=== PATIENT | female | born 1955 | race Caucasian/White ===

== ENCOUNTER 2019-10-27 11:25 | Outpatient (CLI) | payer MEDICARE, OTHER, SELFPAY ==
--- NOTE | 2019-10-27 11:41 | CT_ITS ---
WS: [id number] CT ABDOMEN WITH CONTRAST HISTORY: LUQ ABDOMINAL PAIN Contiguous single phase 5 mm axial imaging performed to the abdomen. Oral contrast has been provided. Coronal and sagittal reformats are submitted. All CT scans at [facility] use at least on e of these dose optimization techniques: automated exposure control; mA and/or kV adjustment per shikha ent size (includes targeted exams where dose is matched to clinical indication); or iterative reconst ruction. CONTRAST: Omnipaque 300; 95 mL IV. DLP: 440.11 mGy.cm COMPARISON: None available. Lower thorax: Mild dependent changes at the lung bases. Remote healed rib fracture in the lateral low er RIGHT thorax. Cardiac size is moderately enlarged. Small hiatal hernia. Liver: Mild irregularity along the surface of the liver. There is a filling defect along the anterior portion of the main portal vein. No occlusion. Gallbladder: Prior cholecystectomy. Pancreas: Normal. Spleen: Spleen is moderately enlarged measuring 14.1 cm in length. Adrenals: Normal. Right kidney: Normal. Left kidney: Normal. Aorta: Mild atherosclerosis. No aneurysm. GI tract: Soft tissue circumferential thickening at the cecum and proximal ascending colon. Soft tiss ue thickening is most significant along the medial cecum measuring 10 mm. No GI tract obstruction. Pr ior appendectomy. No adenopathy or free fluid. Abdominal wall: No hernia. Visualized osseous structures: Unremarkable. CT/CT abdomen w con* [id number] IMPRESSION: 1. Circumferential soft tissue thickening at the cecum. Suspicious for neoplas m until proven otherwise. Focal colitis may appear similar. Recommend colonosco py and further evaluation. 2. Partial thrombus in the main portal vein. Portal vein thrombosis can be see n with cirrhosis and abdominal malignancy. 3. Splenomegaly and cirrhosis. 4. Prior cholecystectomy.
[2019-10-27] MEDS: iohexol 300 mg/mL 100 mL Btl PO (11:49)
[2019-10-27 12:45] LABS: Blood Urea Nitrogen 10 mg/dL (8-23); Glomerular Filtration Rate 71.8 mL/min (90-130)
[2019-10-27] MEDS: iohexol 300 mg/mL 100 mL Btl IV (13:03)
== END 2019-10-27 11:26 | disposition home or self-care (01) ==
LOC: RAD 11:30
PROVIDERS: Family Provider Family Medicine; PCP Family Medicine; Visit Provider Family Medicine
DX: R10.12 Left upper quadrant pain (principal); R16.1 Splenomegaly, not elsewhere classified; K74.69 Other cirrhosis of liver; I81 Portal vein thrombosis
CPT/HCPCS: 36415; 74160; 82565; 84520

== ENCOUNTER 2019-11-03 12:33 | Outpatient (CLI) | payer MEDICARE, OTHER, SELFPAY ==
--- NOTE | 2019-11-03 12:42 | CT_ITS ---
WS: [id number] CT CHEST ANGIOGRAPHY WITH REFORMATS HISTORY: DYSPNEA, CHEST PAIN TECHNIQUE: Contiguous axial images are obtained through the chest during arterial injection of intrav enous contrast. Images are reconstructed to evaluate the pulmonary arteries. MIP imaging also reviewe d. All CT scans at [facility] use at least one of these dose optimization techniques: aut omated exposure control; mA and/or kV adjustment per patient size (includes targeted exams where dose is matched to clinical indication); or iterative reconstruction. CONTRAST: Omnipaque 350; 95 mL IV. DLP: 610.03 mGycm COMPARISON: None available. Very good enhancement of the pulmonary arteries. No pulmonary embolism. Normal size pulmonary artery. Mild atherosclerosis aorta. No dissection or aneurysm. Mild scattered calcifications in the [place] c oronary arteries. Heart size is normal. No mediastinal or hilar adenopathy. Mild interstitial thicken ing in the central RIGHT lung and adjacent to an osteophyte in the mid thoracic spine extending towar d the RIGHT. No suspicious mass or pneumonia. Mild circumferential thickening of the distal esophagus. Prior cholecystectomy. Mild irregularity along the surface of the liver. Remote healed rib fracture RIGHT thorax. CT/CT angio chest PE protcl [id number] IMPRESSION: 1. No pulmonary embolism. 2. Mild atherosclerosis aorta. 3. Mild coronary artery calcifications. 4. Prior cholecystectomy.
[2019-11-03] MEDS: iohexol 350 mg/mL 100 mL Btl IV (13:16)
== END 2019-11-03 12:34 | disposition home or self-care (01) ==
LOC: RAD 12:37
PROVIDERS: Family Provider Family Medicine; PCP Family Medicine; Visit Provider Family Medicine
DX: I25.10 Atherosclerotic heart disease of native coronary artery without angina pectoris (principal); I70.0 Atherosclerosis of aorta; R06.02 Shortness of breath; R07.89 Other chest pain; Z90.49 Acquired absence of other specified parts of digestive tract
CPT/HCPCS: 71275; Q9967

== ENCOUNTER 2019-11-11 06:54 | Day surgery (SDC) | payer MEDICARE, OTHER, SELFPAY ==
[2019-11-10 10:32] VITALS: BMI 26.6
--- NOTE | 2019-11-11 07:07 | P.ANESASSM_ITS ---
Pre-Anesthetic Assessment Pre-Anesthetic Assessment: Height/Weight: Height 1.57 m Weight 66.224 kg Preop Diagnosis: Abdominal pain Proposed Procedure: Operation Date: 11/11/19 08:30 Proposed Procedures p Colonoscopy(Not Applicable) - Dagoberto Ortiz MD Familial anesthetic complications: No trouble Was Beta Mack taken within 2 4 hours: Yes Social: Social History: No alcohol and No tobacco Exam: Pre-Anes Outpt Exam: alert, oriented x 3, clear to auscultation bilaterally and regular rate & rhythm Airway: Cervical ROM: WNL MP: 4 Additional comments: missing Pulmonary: Pulmonary: None reported CV/HEM: CV/HEM: HTN : : None reported Hepatic: Comments: portal vein thrombosis GI: GI: GERD Metabolic: Metabolic: DM Musc/skel: Musc/skel: Lower Back Pain Neuropsych: Neuropsych: None reported Anesthetic Plan: ASA status: 3 Anesthesia: MAC Risk of > 500 ml blood loss (7ml/kg in children): No PFSH Anesthesia PFSH: Medical History (Updated 11/05/19 @ 14:58 by Dagoberto Ortiz MD) Diabetes GERD (gastroesophageal reflux disease) Hypertension Surgical History (Updated 11/05/19 @ 14:57 by Dagoberto Ortiz MD) History of appendectomy History of bilateral tubal ligation (~1985) History of cholecystectomy History of esophagogastroduodenoscopy (EGD) History of hysterectomy (~2005) Family History (Updated 11/05/19 @ 10:50 by Sandi Iraheta RN) Denies family history of Anesthesia complication Bleeding disorder Social History (Updated 11/05/19 @ 10:50 by Sandi Iraheta RN) Smoking and tobacco status: never smoked Second hand smoke exposure: No Alcohol intake: never Adopted: No Caregiver/support person: No Lives independently: Yes Household members: spouse Housing: House Marital status: Current occupational status: retired Current occupational exposures/hazards: No Sexually active: No Current gender identity: Female Minal/Congregational: Mormon Data Anesthesia Cardiac Studies: No Data to Display
[2019-11-11 07:59] LABS: Glucose Point of Care 185 mg/dL (70-110)
[2019-11-11 08:03] VITALS: BP 146/88; PULSE 81; RESP 16; TEMP 36.3; O2SAT 96
[2019-11-11] MEDS: sodium chloride 0.9% 1,000 ML 30 ML (08:04)
--- NOTE | 2019-11-11 08:32 | W.PM.OPSUD ---
Surgery/Procedure H&P Update DATE OF PROCEDURE: November 11, 2019 DATE H&P PERFORMED: 11/05/19 H&P UPDATE INFORMATION: I have reviewed H&P completed within last 30 days, I have examined patient prior to procedure and No changes to prior documentation PREOP DIAGNOSIS: Colon polyp/Abnormal CT abdomen and pelvis PRIMARY INDICATION FOR PROCEDURE: The same PLANNED PROCEDURE: Operation Date: 11/11/19 08:30 Proposed Procedures p Colonoscopy(Not Applicable) - Dagoberto Ortiz MD
[2019-11-11 09:41] VITALS: BP 143/68; PULSE 77; RESP 16; TEMP 36.6; O2SAT 99
[2019-11-11 09:48] VITALS: BP 136/70; PULSE 81; RESP 18; O2SAT 98
--- NOTE | 2019-11-11 11:49 | ANE.PACU2 ---
 Inpatient post-anesthesia follow up: Airway intact: Yes Vital signs: Temperature 97.9 F Pulse Rate 81 Respiratory Rate 18 Blood Pressure 136/70 Pulse Oximetry 98 Oxygen Delivery Me thod Room Air Oxygen Flow Rate 3 Fraction of Inspir ed Oxygen Hydration adequate: Yes Nausea and vomiting: No Mental status: Baseline
== END 2019-11-11 10:09 | disposition home or self-care (01) ==
PROVIDERS: Family Provider Family Medicine; PCP Family Medicine; Visit Provider Surgery
PROC: 0DJD8ZZ Inspection of Lower Intestinal Tract, Via Natural or Artificial Opening Endoscopic (ICD-10-PCS; CPT 45378; principal; 2019-11-11 08:30)
DX: Z86.010 Personal history of colon polyps (principal); I10 Essential (primary) hypertension; E11.9 Type 2 diabetes mellitus without complications; K21.9 Gastro-esophageal reflux disease without esophagitis
CPT/HCPCS: 12345; 36416; 45378; 82962; J2704; J7030

== ENCOUNTER 2020-01-11 08:14 | Outpatient (CLI) | payer MEDICARE, OTHER, SELFPAY ==
[2020-01-11] MEDS: iohexol 300 mg/mL 50 mL Btl PO (09:00)
--- NOTE | 2020-01-11 10:00 | CT_ITS ---
WS: [id number] CT ABDOMEN AND PELVIS WITH CONTRAST HISTORY: ABNORMAL CT TECHNIQUE: Imaging performed of the abdomen and pelvis with IV contrast. Single phase imaging of the abdomen. Coronal and sagittal reformats are submitted. All CT scans at [facility] use at least one of these dose optimization techniques: automated exposure control; mA and/or kV adjustment per patient size (includes targeted exams where dose is matched to clinical indication); or iterativ e reconstruction. IV CONTRAST: Omnipaque 300; 95 mL IV. Oral contrast: Yes. DLP: 997.86 mGycm COMPARISON: 10/27/2019 Lower thorax: Lung bases are clear. Heart is normal size. Small hiatal hernia. Liver/biliary system: Surface of the liver is slightly irregular. No mass. Previously described filli ng defect in the portal vein is no longer present. Gallbladder: Prior cholecystectomy. Pancreas: Normal. Spleen: Spleen is top normal size at 13.1 cm in length. Decreased in size since the prior study. Adrenal glands: Normal. Right kidney: Normal. Left kidney: Normal. Aorta: Mild atherosclerosis with no aneurysm. Lymphadenopathy: Very small, subcentimeter lymph nodes around the celiac axis are similar to the prio r study. Free fluid: None. GI tract: Significant improvement in the soft tissue thickening recently described at the cecum. Ther e is still some very mild soft tissue thickening but no progression. No mass identified. There is no obstruction. Appendix has been removed. Abdominal wall: Unremarkable abdominal wall. No hernia. Pelvis: Prior hysterectomy. No free fluid or adenopathy. Well-distended urinary bladder. Bones: No osteoblastic or osteolytic bone lesions. CT/CT abdomen pelvis w con* [id number] IMPRESSION: 1. Significant improvement in the soft tissue thickening at the cecum. Less li parminder neoplastic and more likely inflammatory due to the decrease. 2. Prior cholecystectomy, appendectomy and hysterectomy. 3. Resolved partial portal vein thrombosis. 4. Slight decrease in size of the spleen.
[2020-01-11] MEDS: iohexol 300 mg/mL 100 mL Btl IV (10:28)
[2020-01-11 10:33] LABS: Blood Urea Nitrogen 12 mg/dL (8-23); Glomerular Filtration Rate 83.7 mL/min (90-130)
== END 2020-01-11 08:15 | disposition home or self-care (01) ==
LOC: RADWPI 08:24
PROVIDERS: Family Provider Family Medicine; PCP Family Medicine; Visit Provider Surgery
DX: R22.9 Localized swelling, mass and lump, unspecified (principal)
CPT/HCPCS: 74177; 82565; 84520; Q9967

== ENCOUNTER 2020-01-25 10:36 | Day surgery (SDC) | payer MEDICARE, OTHER, SELFPAY ==
[2020-01-22 12:28] VITALS: BMI 28.3
[2020-01-25 10:39] VITALS: BP 139/71; PULSE 88; RESP 16; TEMP 36; O2SAT 97
[2020-01-25] MEDS: sodium chloride 0.9% 1,000 ML 30 ML IV (10:57)
[2020-01-25 11:03] LABS: Glucose Point of Care 261 mg/dL (70-110)
--- NOTE | 2020-01-25 11:04 | ANES.PREANE2 ---
Pre-Anesthetic Assessment Pre-Anesthetic Assessment: Height/Weight: Height 1.57 m Weight 70.307 kg Temp Pulse Resp BP Pulse Ox 96.8 F L 88 16 139/71 97 01/25/20 10:39 01/25/20 10:39 01/25/20 10:39 01/25/20 10:39 01/25/20 10:39 Preop Diagnosis: Colon polyp/Abnormal CT abdomen and pelvis Proposed Procedure: Operation Date: 01/25/20 12:00 Proposed Procedures p EGD 30075 K21.9(Not Applicable) - Dagoberto Ortiz MD Familial anesthetic complications: none Was Beta Mack taken within 24 hours: Yes Last intake: Intake Last Liquid Date 01/24/20 Last Liquid Time 22:30 Last Solid Date 01/24/20 Last Solid Time 18:30 Social: Social History: No alcohol and No tobacco Exam: Pre-Anes Outpt Exam: alert, oriented x 3, clear to auscultation bilaterally and regular rate & rhythm Airway: Cervical ROM: WNL MP: 2 Additional comments: detnures Pulmonary: Pulmonary: Cough (chronic) CV/HEM: CV/HEM: HTN : : None reported Hepatic: Hepatic: None reported Comments: portal vein thrombosis GI: GI: GERD Metabolic: Metabolic: DM and Morbid obesity Musc/skel: Musc/skel: None reported Neuropsych: Neuropsych: None reported Anesthetic Plan: ASA status: 3 Anesthesia: MAC Risk of > 500 ml blood loss (7ml/kg in children): No Meds/Allergies Current Medications: Current Medications Generic Name Dose Route Start Last Admin Trade Name Freq PRN Reason Stop Dose Admin Sodium Chloride 1,000 mls @ 30 ml s/hr 01/25/20 10:45 01/25/20 10:57 Sodium Chloride 0.9% IV 01/26/20 10:44 30 mls/hr .Q24H TRELL Administration PFSH Anesthesia PFSH: Medical History Diabetes GERD (gastroesophageal reflux disease) Hypertension Surgical History History of appendectomy History of bilateral tubal ligation (~1985) History of cholecystectomy History of esophagogastroduodenoscopy (EGD) History of hysterectomy (~2005) Family History Denies family history of Anesthesia complication Bleeding disorder Social History Smoking and tobacco status: never smoked Second hand smoke exposure: No Alcohol intake: never Adopted: No Caregiver/support person: No Lives independently: Yes Household members: spouse Housing: House Marital status: Current occupational status: retired Current occupational exposures/hazards: No Sexually active: No Current gender identity: Female Minal/Orthodox: Restorationist Data Anesthesia Other Labs: Laboratory Results - last 48 hr 01/25/20 10:54 POC Glucose 261 Cardiac Studies: No Data to Display
--- NOTE | 2020-01-25 12:06 | W.PM.OPSFHP ---
Same Day Surgery H&P Indication for Procedure/HPI DATE OF PROCEDURE: January 25, 2020 CHIEF COMPLAINT/INDICATIONFOR SURGICAL PROCEDURE: Heartburn PREOP DIAGNOSIS: Colon polyp/Abnormal CT abdomen and pelvis PLANNED PROCEDRUE: Operation Date: 01/25/20 12:00 Proposed Procedures p EGD 91782 K21.9(Not Applicable) - Dagoberto Ortiz MD History of present illness: This is a pleasant 64 years old female patient well-known to me from previous clinical encounters and she has been having persistent GERD symptoms and dyspepsia, today we will plan to perform a diagnostic EGD and patient agreed on that. A previous CT scan showed thickness of the cecum in the presence of abdominal pain that was followed by colonoscopy and the designated spot did not show much except normal endoscopic findings, followed by repeat CT scan per my discussion with Dr. Partida and that showed resolution of the thickness of the part of the cecum likely inflammatory. ROS All systems have been reviewed negative except for the above and per problem list. Medications/Allergies* Home Medications Medication Instructions Recorded Confirmed Type amlodipine 10 mg tablet 10 mg PO DAILY 11/05/19 01/22/20 History aripiprazole 15 mg tablet 15 mg PO DAILY 11/05/19 01/22/20 History aspirin 81 mg tablet,delayed 81 mg PO DAILY 11/05/19 01/22/20 History release carvedilol 12.5 mg tablet 12.5 mg PO BID 11/05/19 01/22/20 History esomeprazole magnesium 20 mg 20 mg PO DAILY 11/05/19 01/22/20 History capsule,delayed release glimepiride 2 mg tablet 3 mg PO BID tab 11/05/19 01/22/20 History hydrochlorothiazide 25 mg tablet 25 mg PO DAILY 11/05/19 01/22/20 History Allergies/Adverse Reactions Allergy/AdvReac Type Severity Reaction Status Date / Time pantoprazole [From Protonix] Allergy Severe ALGY-Hives Verified 01/25/20 12:08 Current Medications: Generic Name Dose Route Start Last Admin Trade Name Freq PRN Reason Stop Dose Admin Sodium Chloride 1,000 mls @ 30 mls/hr 01/25/20 10:45 01/25/20 10:57 Sodium Chloride 0.9% IV 01/26/20 10:44 30 mls/hr .Q24H TRELL Administration Pertinent History/Comorbid Conditions* Medical History (Updated 11/11/19 @ 09:44 by Dagoberto Ortiz MD) Diabetes GERD (gastroesophageal reflux disease) Hypertension Surgical History (Updated 11/05/19 @ 14:57 by Dagoberto Ortiz MD) History of appendectomy History of bilateral tubal ligation (~1985) History of cholecystectomy History of esophagogastroduodenoscopy (EGD) History of hysterectomy (~2005) Family History (Updated 11/05/19 @ 10:50 by Sandi Iraheta RN) Denies family history of Anesthesia complication Bleeding disorder Social History Smoking and tobacco status: never smoked Second hand smoke exposure: No Alcohol intake: never Adopted: No Caregiver/support person: No Lives independently: Yes Household members: spouse Housing: House Marital status: Current occupational status: retired Current occupational exposures/hazards: No Sexually active: No Current gender identity: Female Minal/Jewish: Restorationism Pertinent Exam Findings alert, oriented x 3, clear to auscultation bilaterally, regular rate & rhythm and operative site marked (Abdominal examination nontender non-distended soft no signs of peritonitis) Recommendations Surgery/Procedure today (Diagnostic EGD with possible biopsy) Coding Level of Care Code Acute Service Delivery Consultant for Shahram Woodson
[2020-01-25 12:56] VITALS: BP 128/58; PULSE 78; RESP 16; TEMP 36.2; O2SAT 98
[2020-01-25 13:06] VITALS: BP 147/70; PULSE 84; RESP 16; O2SAT 96
[2020-01-26 10:07] LABS: H. Pylori / CLO Test Negative
== END 2020-01-25 13:20 | disposition home or self-care (01) ==
PROVIDERS: PCP Family Medicine; Visit Provider Surgery
PROC: 0DJ08ZZ Inspection of Upper Intestinal Tract, Via Natural or Artificial Opening Endoscopic (ICD-10-PCS; CPT 43235; principal; 2020-01-25 12:00)
DX: K21.9 Gastro-esophageal reflux disease without esophagitis (principal); K29.70 Gastritis, unspecified, without bleeding; Z79.82 Long term (current) use of aspirin; E11.9 Type 2 diabetes mellitus without complications; I10 Essential (primary) hypertension
CPT/HCPCS: 12345; 36416; 43239; 82962; 87077; J2704; J7030

== ENCOUNTER → 2020-06-27 10:43 | Outpatient (BNVA) | payer MEDICARE, OTHER, SELFPAY | PROVIDERS: PCP Family Medicine; Referring Provider Family Medicine; Visit Provider Podiatrist Foot & Ankle Surgery | DX: M19.072 Primary osteoarthritis, left ankle and foot (principal); M79.672 Pain in left foot | CPT/HCPCS: 73630 ==

== ENCOUNTER 2020-06-29 13:30 | Outpatient (RCR) | payer MEDICARE, OTHER, SELFPAY | END 2020-07-09 23:59 | disposition home or self-care (01) | LOC: SPT 13:30 | PROVIDERS: PCP Family Medicine; Referring Provider Podiatrist Foot & Ankle Surgery; Visit Provider Podiatrist Foot & Ankle Surgery | DX: R29.6 Repeated falls (principal) | CPT/HCPCS: 97110; 97161; 97530 ==

== ENCOUNTER 2020-07-10 06:00 | Outpatient (RCR) | payer MEDICARE, OTHER, SELFPAY | END 2020-08-08 23:59 | disposition home or self-care (01) | LOC: SPT 06:00 | PROVIDERS: PCP Family Medicine; Referring Provider Podiatrist Foot & Ankle Surgery; Visit Provider Podiatrist Foot & Ankle Surgery | DX: R29.6 Repeated falls (principal) | CPT/HCPCS: 97110 ==

== ENCOUNTER 2020-08-09 06:00 | Outpatient (RCR) | payer MEDICARE, OTHER, SELFPAY | END 2020-08-11 16:36 | disposition home or self-care (01) | LOC: SPT 06:00 | PROVIDERS: PCP Family Medicine; Referring Provider Podiatrist Foot & Ankle Surgery; Visit Provider Podiatrist Foot & Ankle Surgery | DX: R29.6 Repeated falls (principal) | CPT/HCPCS: 97110 ==

== ENCOUNTER 2020-08-16 08:14 | Outpatient (CLI) | payer MEDICARE, OTHER, SELFPAY ==
--- NOTE | 2020-08-16 08:21 | MM_ITS ---
WS: [id number] BILATERAL DIGITAL SCREENING MAMMOGRAPHY WITH CAD CLINICAL INFORMATION: SCREENING HISTORY: Screening mammogram. Breast tenderness COMPARISON: 019 TECHNIQUE: Bilateral CC and MLO views. FINDINGS: The breasts are composed of heterogeneous fibroglandular density tissue, which can limit the detectio n of small underlying mass lesions. No suspicious mass, asymmetry, calcifications, or architectural d istortion. No evidence of malignancy. Vascular calcification. Stable punctate calcifications. Stable clustered calcifications upper posterior right breast. MM/[place] [id number] IMPRESSION: BI-RADS: 2-Benign FOLLOW UP: 1 Year Follow-up Recommend return to annual screening mammography.
== END 2020-08-16 08:15 | disposition home or self-care (01) ==
LOC: RADSHAW 08:17
PROVIDERS: PCP Family Medicine; Visit Provider Family Medicine
DX: Z12.31 Encounter for screening mammogram for malignant neoplasm of breast (principal)
CPT/HCPCS: 77067

== ENCOUNTER → 2020-11-22 11:27 | Outpatient (BNVA) | payer MEDICARE, OTHER, SELFPAY | PROVIDERS: PCP Family Medicine; Visit Provider Obstetrics & Gynecology | DX: N90.89 Other specified noninflammatory disorders of vulva and perineum (principal) | CPT/HCPCS: 88305 ==

== ENCOUNTER 2021-02-23 10:00 | Outpatient (CLI) | payer MEDICARE, OTHER, SELFPAY ==
[2021-02-23 11:51] VITALS: BMI 30.2
--- NOTE | 2021-02-23 11:52 | ECG_ITS ---
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 Interpretive Statements NAME OF STUDY: LEXISCAN SESTAMIBI STRESS TEST INDICATION: Dyspnea PROCEDURE: At the baseline, the blood pressure was 148/72 mmHg with a heart rate of 82 bpm. The electrocardiogram showed normal sinus rhythm, normal axis with nonspecific ST depression in leads II, III and aVF. The Lexiscan was infused over a period of 20 seconds. A total of 0.4 milligrams of Lexiscan was infused. The stress phase was continued for a total of 5 minutes. Heart rate at the end of the stress phase was 92 bpm with a blood pressure of 155/65 mmHg. The EKG at the peak infusion revealed sinus rhythm with no significant ST-T wave changes. The study was terminated due to protocol completion. Sestamibi was injected 20 seconds after the Lexiscan infusion. Blood pressure at the end of the recovery phase was 156/69 mmHg with a heart rate of 91 beats per minute. CONCLUSION: 1. No significant EKG changes with the LexiScan infusion. 2. No LexiScan induced chest pain or cardiac arrhythmia. 3. Normal blood pressure and heart rate response. 4. Sestamibi/sestamibi perfusion scan pending; see separate report. Electronically Signed On 02-27-2021 11:11:01 CDT by Ale Quick M.D. [email or web address] [id number]
--- NOTE | 2021-02-23 11:53 | NMCV_ITS ---
NM alfredo perf SPECT r/s* [id number] Kristin Rosario Age: 66 Gender: F : 1955 Exam Date: 02/23/2021 12:10 Ordering Phys: Sunny Tian MD Technologist: CECILIA Luna Exam Location: [facility] Indications: DYSPNEA STRESS TEST Please [facility] IMAGE PROTOCOL Rest/Stress 1 Lexiscan Day Radiopharmaceutical Dose (mCi) Administration Site Administered by Rest: Tc-99m 10.5 IV CECILIA Luna Sestamibi Stress:Tc-99m 32.4 IV CECILIA Jaramillo Sestamibi Rest: 23-Feb-2021 60 Discovery 630 Stress: 23-Feb-2021 30 Discovery 630 0.4mg Lexiscan. Images obtained in supine and prone position. SPECT RESULTS Technical Quality: Excellent Raw Data Analysis: Normal Image Corrections: No attenuation or motion correction applied Summed Stress Score: 0 Summed Rest Score: 0 Summed Difference Score: 0 PERFUSION FINDINGS SPECT images demonstrate homogeneous tracer distribution throughout the myocardium. FUNCTIONAL RESULTS (calculated via Gated SPECT) Stress Image LV EF (%): 79 Stress EDV (mL):72 TID: 0.92 Stress ESV (mL):15 FUNCTIONAL FINDINGS: The left ventricle is normal in size. Transient Ischemia Dilatation of 0.92. There is normal left ventricular systolic function. The left ventricular ejection fraction is normal with a value of 79%. There is normal left ventricular wall thickening with no regional wall motion abnormality. Normal end-diastolic end-systolic volumes. IMPRESSIONS 1. Myocardial perfusion imaging is normal. 2. Overall left ventricular systolic function is normal without regional wall motion abnormalities. 3. The left ventricular ejection fraction is normal with a value of 79%. 4. No significant EKG changes with Lexiscan infusion. Please refer to separate report for details. 5. Scan indicates low risk for cardiac events. Ale Quick MD (Electronically Signed) Final Date: 27 February 2021 11:18 S
[2021-02-23 13:26] VITALS: BP 156/69; PULSE 91
[2021-02-23] MEDS: regadenoson 0.4 Mg/5 ml Syringe IVP (13:29)
== END 2021-02-23 10:01 | disposition home or self-care (01) ==
LOC: CDL 10:03
PROVIDERS: PCP Family Medicine; Visit Provider Family Medicine
DX: R06.00 Dyspnea, unspecified (principal); R07.9 Chest pain, unspecified
CPT/HCPCS: 78452; 93017; A9500; J2785

== ENCOUNTER 2021-02-28 08:54 | Outpatient (CLI) | payer MEDICARE, OTHER, SELFPAY ==
--- NOTE | 2021-02-28 09:04 | US_ITS ---
WS: [id number] Complete ABDOMINAL ULTRASOUND HISTORY: LUQ RUQ ABDOMINAL PAIN COMPARISON: 02/27/2019 Liver: 13.8 cm in length. Liver is normal size but there is mild increased attenuation and coarsened echotexture suggesting early cirrhosis. No mass or bile duct dilatation. Gallbladder: Prior cholecystectomy. Pancreas: Normal size and echogenicity. CBD: 0.4 cm. Right kidney: 9.7 cm x 5.9 cm x 4.6 cm. No mass, cortical thickening or hydronephrosis. Left kidney: 11.4 cm x 4.8 cm x 5.2 cm. No mass, cortical thickening or hydronephrosis. Spleen: Spleen is slightly enlarged measuring 14.7 cm in length. Abdominal aorta and IVC are within normal limits. No ascites. US/US abdomen complete* [id number] IMPRESSION: 1. Mild splenomegaly. 2. Prior cholecystectomy. 3. Suspect mild changes of hepatocellular disease such as cirrhosis.
== END 2021-02-28 08:55 | disposition home or self-care (01) ==
LOC: RAD 08:57
PROVIDERS: PCP Family Medicine; Visit Provider Family Medicine
DX: R10.12 Left upper quadrant pain (principal); R10.11 Right upper quadrant pain; R16.1 Splenomegaly, not elsewhere classified; Z90.49 Acquired absence of other specified parts of digestive tract
CPT/HCPCS: 76700

== ENCOUNTER 2021-03-20 08:19 | Outpatient (CLI) | payer MEDICARE, OTHER, SELFPAY ==
--- NOTE | 2021-03-20 08:28 | USCV_ITS ---
Kristin Rosario Age: 66 Gender: F : 1955 Exam Date: 03/20/2021 08:47 Ordering Phys: Technologist: Sarai Corral Exam Location: [facility] [place] Indication: SOB LOW O2 CHEST PAIN BP: 165 / 87 HR: 67 Rhythm: Sinus Technical Quality: Adequate MEASUREMENTS (Male / Female) Normal Values 2D ECHO LV Diastolic Diameter PLAX 3.8 cm 4.2 - 5.9 / 3.9 - 5.3 cm LV Systolic Diameter PLAX 2.4 cm LV Chamber Size 3.7 cm IVS Diastolic Thickness 1.4 cm 0.6 - 1.0 / 0.6 - 0.9 cm IVS Systolic Thickness 1.8 cm LVPW Diastolic Thickness 1.6 cm 0.6 - 1.0 / 0.6 - 0.9 cm LVPW Systolic Thickness 1.6 cm RV Chamber Size 3.2 cm LVOT Diameter 2.0 cm LV Ejection Fraction 2D Teich 65.3 % LV Ejection Fraction MOD 2C 36.7 % LV Ejection Fraction 2C AL 33.3 % LA Diameter 3.8 cm LA Width 3.3 cm LA Height 4.4 cm RA Width 3.7 cm RA Height 2.7 cm Aorta at Sinotubular Diameter 3.0 cm M-MODE LV Diastolic Diameter MM 4.3 cm 4.2 - 5.9 / 3.9 - 5.3 cm LV Systolic Diameter MM 2.8 cm LV Ejection Fraction MM Teich 63.5 % IVS Diastolic Thickness MM 1.1 cm 0.6 - 1.0 / 0.6 - 0.9 cm IVS Systolic Thickness MM 1.8 cm LVPW Diastolic Thickness MM 1.4 cm 0.6 - 1.0 / 0.6 - 0.9 cm LVPW Systolic Thickness MM 1.8 cm RV Diastolic Diameter MM 2.9 cm Aortic Annulus Diameter 3.1 cm LA Ao Ratio MM 1.5 MV E Point Septal Separation 0.6 cm DOPPLER AV Peak Velocity 131.0 cm/s LVOT Peak Velocity 70.0 cm/s AV Area Cont Eq vti 2.2 cm squared AV Area Cont Eq pk 1.8 cm squared MV Area PHT 2.9 cm squared Mitral E to A Ratio 0.8 MV E' Velocity 39.5 cm/s Mitral E to MV E' Ratio 11.3 Mitral E to LV E' Lateral Ratio 11.6 Mitral E to LV E' Septal Ratio 10.9 TR Peak Velocity 211.0 cm/s TR Peak Gradient 17.8 mmHg TR Mean Velocity 134.1 cm/s TR Mean Gradient 9.5 mmHg TR Velocity Time Integral 51.9 cm TV Peak E Velocity 74.0 cm/s Right Atrial Pressure 3.0 mmHg Pulmonary Artery Systolic Pressu 20.8 mmHg PV Peak Velocity 85.0 cm/s RV Acceleration Time 0.2 s RV Ejection Time 0.4 s RV AcT/ET 0.4 FINDINGS Left Ventricle Normal left ventricular size and systolic function, EF 60 %. No regional wall motion abnormalities. Mild left ventricular hypertrophy. Grade I/IV diastolic dysfunction (abnormal relaxation filling pattern), normal to mildly elevated filling pressures. Right Ventricle Normal right ventricular systolic function. Thickening of the right on his left free wall, suggestive of hypertrophy Right Atrium The right atrium is normal in size. Left Atrium Mildly increased left atrial size. Mitral Valve Trace to mild mitral valve regurgitation. Aortic Valve Structurally normal aortic valve without significant sclerosis or stenosis. There is no aortic regurgitation. Tricuspid Valve Trace tricuspid valve regurgitation. Pulmonic Valve Structurally normal pulmonic valve without significant stenosis. There is no pulmonic regurgitation. Pericardium Normal pericardium without effusion. Aorta Mild to moderate plaque seen in the ascending aorta. CONCLUSIONS Normal left ventricular size and systolic function, EF 60 %. No regional wall motion abnormalities. Mild left ventricular hypertrophy. Grade I/IV diastolic dysfunction (abnormal relaxation filling pattern), normal to mildly elevated filling pressures. Mildly increased left atrial size. Trace to mild mitral valve regurgitation. Trace tricuspid valve regurgitation. The estimated pulmonary artery peak systolic pressure was 21 mmHg There is no pericardial effusion. Compared to the study from 04/08/2017, there may not be a significant change Technically somewhat difficult study because of poor ultrasonic window Dr Padma Hinson MD [facility] (Electronically Signed) Final Date: 20 March 2021 16:31 S
== END 2021-03-20 08:20 | disposition home or self-care (01) ==
LOC: US 08:20
PROVIDERS: PCP Family Medicine; Visit Provider Family Medicine
DX: R06.00 Dyspnea, unspecified (principal); R07.89 Other chest pain; R06.02 Shortness of breath; I08.1 Rheumatic disorders of both mitral and tricuspid valves
CPT/HCPCS: 93306

== ENCOUNTER 2021-04-13 12:25 | Emergency (ER) | payer MEDICARE, OTHER, SELFPAY ==
[2021-04-13 12:47] VITALS: BP 133/78; PULSE 81; RESP 19; TEMP 37; O2SAT 93; BMI 29.9
[2021-04-13 12:52] VITALS: BP 124/78; RESP 18; O2SAT 99
--- NOTE | 2021-04-13 16:16 | XRR_ITS ---
PROCEDURE INFORMATION: Exam: XR Lumbosacral Spine Exam date and time: 04/13/2021 4:16 PM Age: 66 years old Clinical indication: Low back pain; Prior surgery TECHNIQUE: Imaging protocol: XR of the lumbosacral spine. Views: 2 or 3 views. COMPARISON: MRI Lumbar Spine w/o [id number] 07/07/2019 11:27 AM FINDINGS: Bones/joints: There is decreased height of the L2-L3 disc space. There are prominent anterolateral osteophytes at L2-L3 and also some spurring along the left side at L3-L4 and L4-L5. Intervertebral disc spaces are otherwise preserved. No fracture is identified. There are 6 non rib-bearing lumbar type vertebrae. Soft tissues: Unremarkable. Other findings: Bones are moderately osteopenic. XR/XR lumbar spine 2-3V* [id number] IMPRESSION: 1. No fracture is identified. 2. Degenerative changes.
--- NOTE | 2021-04-13 16:16 | XRR_ITS ---
PROCEDURE INFORMATION: Exam: XR Thoracic Spine Exam date and time: 04/13/2021 4:16 PM Age: 66 years old Clinical indication: Pain in thoracic spine; Prior surgery TECHNIQUE: Imaging protocol: XR of the thoracic spine. Views: 3 views. COMPARISON: CT abdomen pelvis w con* [id number] 01/11/2020 10:25 AM FINDINGS: Bones/joints: There are degenerative changes with some bridging osteophytes along the right side of the lower thoracic spine. No fracture is identified. Bones are moderately osteopenic. Soft tissues: Unremarkable. Paraspinous stripe is intact XR/XR thoracic spine 3V* [id number] IMPRESSION: 1. Degenerative changes. 2. No fracture is identified.
--- NOTE | 2021-04-13 16:17 | XRR_ITS ---
PROCEDURE INFORMATION: Exam: XR Chest Exam date and time: 04/13/2021 4:17 PM Age: 66 years old Clinical indication: Cough; Additional info: Dyspnea/cough TECHNIQUE: Imaging protocol: XR of the chest. Views: 1 view. COMPARISON: CR Chest 1 [place] [id number] 05/17/2019 7:51 PM FINDINGS: Lungs: Visualized portions of the lungs are clear. Pleural spaces: Unremarkable. No pleural effusion. No pneumothorax. Heart/Mediastinum: Heart is within normal limits of size. Vasculature: Atherosclerotic calcification is seen in the aortic arch. Bones/joints: There are degenerative changes in the thoracic spine. XR/XR chest 1V portable [id number] IMPRESSION: No acute infiltrates.
--- NOTE | 2021-04-13 16:18 | PC.PHAR ---
pt states she takes care of her own medications-pt states the dr huntd her pioglitazone about 2 weeks ago-pt states she takes a allergy relief pill once a day and states she thinks its the benadryl -
--- NOTE | 2021-04-13 16:19 | ED_ITS ---
HPI - Female Genitourinary General: Chief complaint: Urogenital-Female Stated complaint: r side flank pain Time Seen by Provider: 04/13/21 15:28 History of Present Illness: HPI Narrative: 66-year-old female comes in complaining of pain in the right flank is been worse over the last week is been going on for little over a month. Is worse when she moves in particular ways he will get a spasm-like effect it was reexacerbated when we had her sit up to listen to her breath sounds. Supposedly later back down when she twists it also spasms. She cannot remember the precipitating event. She is not had any hematuria no dysuria urgency or frequency no cough or shortness of breath no fevers. MD elicited complaint: flank pain Onset (ago): week(s) Location of symptoms: flank (Right mid back) Severity: moderate Female Urogenital Radiation: R Flank Quality of pain: sharp and stabbing Consistency: intermittent Vaginal bleeding: none Exacerbating factors: movement Relieving factors: none Associated symptoms: Deny abdominal pain, short of breath, fevers/chills, headache(s), nausea, rash, seizures, syncope or weakness Treatment prior to arrival: none Review of Systems Const: Denies: fever(s), chills, body aches, change in appetite, fatigue or malaise ENMT: Denies: throat pain, ear or mastoid pain, nasal discharge or nasal congestion Card: Denies: syncope Resp: Denies: dyspnea, productive cough or non-productive cough GI: Denies: abdominal pain or nausea : Denies: flank pain, difficulty voiding, dysuria, urinary frequency or urinary urgency Skin/Breast: Denies: rash or pruritus Neuro: Denies: headache(s) PFSH ED PFSH: Medical History (Updated 04/13/21 @ 17:57 by Angel Del Castillo DO) Diabetes GERD (gastroesophageal reflux disease) Hypertension Surgical History History of appendectomy History of bilateral tubal ligation (~1985) History of cholecystectomy History of esophagogastroduodenoscopy (EGD) History of hysterectomy (~2005) Family History Denies family history of Anesthesia complication Bleeding disorder Social History Smoking and tobacco status: never smoked Second hand smoke exposure: No Alcohol intake: never Adopted: No Caregiver/support person: No Lives independently: Yes Household members: spouse Housing: House Marital status: Current occupational status: retired Current occupational exposures/hazards: No Sexually active: No Current gender identity: Female Minal/Uatsdin: [employer] Physical Exam Const: COMMON NORMALS: no acute distress GENERAL APPEARANCE: cooperative and comfortable ORIENTATION/CONSCIOUSNESS: Yes awake, Yes oriented to person, Yes oriented to place and Yes oriented to time HENMT: COMMON NORMALS: normocephalic, atraumatic and hearing grossly normal bilaterally HEAD & SCALP: normocephalic and atraumatic Neck/C-Spine: COMMON NORMALS: no JVD Resp: COMMON NORMALS: normal respiratory effort, No retractions, No use of accessory muscles and clear to auscultation bilaterally AUSCULTATION: clear to auscultation bilaterally Cardio: COMMON NORMALS: no JVD, regular rate, regular rhythm and No murmurs present (Cardio) RATE: regular rate RHYTHM: regular rhythm GI: COMMON NORMALS: Soft to palpation and No hepatosplenomegaly present AUSCULTATION: Yes normoactive bowel sounds PALPATION: Yes Soft to palpation, No Tenderness to palpation present (GI), No Guarding due to palpation present (GI) and Yes No hepatosplenomegaly present Extremity: COMMON NORMALS: normal to inspection, capillary refill normal, no clubbing, cyanosis or edema, no calf tenderness and no pedal edema Neuro: SENSORIUM/ORIENTATION: Yes oriented to person, Yes oriented to place and Yes oriented to time Skin: COMMON NORMALS: no rashes or lesions noted GENERAL SKIN EXAM: no rashes or lesions noted Course Vital Signs: Vital signs: Vital Signs Temperature 98.6 F 04/13/21 12:47 Pulse Rate 81 04/13/21 12:47 Respiratory Rate 18 04/13/21 18:08 Blood Pressure 124/78 04/13/21 18:08 Pulse Oximetry 99 04/13/21 18:08 MDM - Female MDM Narrative: Medical decision making narrative: Reviewed labs and imaging. Patient will be discharged home. No acute fractures this time return if has further problems otherwise follow-up with primary care doctor medications given as below Lab Data: Labs: Lab Results 04/13/21 Range/Units 17:00 Urine Color Yellow (Yellow) Urine Appearance Clear (CLEAR) Urine pH 5 (5-7) Ur Specific Gravit y 1.015 (1.005-1.030) Urine Protein 1+ H (Negative) Urine Glucose (UA) 2+ (Normal) Urine Ketones Negative (Negative) Urine Blood Neg (Negative) Urine Nitrate Negative (Negative) Urine Bilirubin Neg (Negative) Urine Urobilinogen Neg (Negative) mg/dL Ur Leukocyte Alana ase Negative (Negative) Discharge Plan Discharge Patient Disposition: Home Clinical Impression: Back pain without radiation Condition: Stable Prescriptions: New hydrocodone-acetaminophen 5-325 mg tablet 1 tab PO Q6H PRN (Reason: pain) Qty: 10 RF: 0 diclofenac sodium 75 mg tablet,delayed release (DR/EC) 75 mg PO Q12H PRN (Reason: pain) Qty: 20 RF: 0 Medrol (Carter) 4 mg tablets,dose pack See Rx Instructions .ROUTE .COMPLEX Qty: 21 RF: 0 No Action hydrochlorothiazide 25 mg tablet 25 mg PO QAM RF: 0 amlodipine 10 mg tablet 10 mg PO QAM RF: 0 aripiprazole 15 mg tablet 15 mg PO BEDTIME RF: 0 esomeprazole magnesium [Nexium] 20 mg capsule,delayed release(DR/EC) 40 mg PO QAM RF: 0 carvedilol 12.5 mg tablet 12.5 mg PO BID RF: 0 aspirin 81 mg tablet,delayed release (DR/EC) 81 mg PO QAM RF: 0 Hold Instructions: Resume on 01/28/20. cyclobenzaprine 10 mg tablet 10 mg PO TID PRN (Reason: muscle spasm) Qty: 30 RF: 0 (DME) DIABETIC SHOES See Rx Instructions .ROUTE .MEDSUPPLY Qty: 1 RF: 0 Tylenol Extra Strength 500 mg Tablet 1,000 mg PO PRN RF: 0 Allergy Relief(diphenhydramin) 25 mg Tablet 25 mg PO QAM RF: 0 glimepiride 4 mg tablet 4 mg PO BID RF: 0 Discharge Orders: Discharge ED (Routine); Ordered 04/13/21 Ordered By: Angel Del Castillo Referrals: Sunny Tian MD [Primary Care Provider] - Patient Instructions: Opioid Safety Coding Level of Care Code ED Fryline Attendant for Chg Fwd Exam Comprehensive
[2021-04-13 17:15] LABS: Add Urine Microscopic? NO; Charge for UA Resulting for Rev
[2021-04-13 17:35] LABS: Bilirubin Urine Neg (Negative); Blood Urine Neg (Negative); Glucose Urine UA 2+ (Normal); Ketones Urine Negative (Negative); Leukocyte Esterase Urine Negative (Negative); Nitrate Urine Negative (Negative); Protein Urine 1+ (Negative); Specific Gravity, Urine 1.015 (1.005-1.030); Urine Appearance Clear (CLEAR); Urine Color Yellow (Yellow); Urobilinogen Urine Neg (Negative); pH Urine 5 (5-7)
[2021-04-13 18:08] VITALS: BP 124/78; RESP 18; O2SAT 99
== END 2021-04-13 18:08 | disposition home or self-care (01) ==
PROVIDERS: Emergency Provider Family Medicine; PCP Family Medicine
DX: M54.9 Dorsalgia, unspecified (principal); Z79.82 Long term (current) use of aspirin; E11.9 Type 2 diabetes mellitus without complications; I10 Essential (primary) hypertension; Z79.84 Long term (current) use of oral hypoglycemic drugs
CPT/HCPCS: 71045; 72072; 72100; 81003; 99283

== ENCOUNTER 2021-08-28 10:03 | Outpatient (CLI) | payer MEDICARE, OTHER, SELFPAY ==
--- NOTE | 2021-08-28 10:15 | XR_ITS ---
WS: [id number] Exam: XR chest 2V* [id number] Date/Time of Exam: 08/28/2021 10:15 AM Reason For Exam: ACUTE BRONCHITIS Comparison 04/13/2021. Findings: The lungs are clear and fully expanded. Costophrenic angles are sharp. No infiltrates. Bronchovascula r relief appears normal. Cardiac silhouette is unremarkable. Bony elements are intact. XR/XR chest 2V* [id number] IMPRESSION: Unremarkable chest radiograph.
== END 2021-08-28 10:04 | disposition home or self-care (01) ==
PROVIDERS: PCP Family Medicine; Visit Provider Clinical Nurse Specialist Adult Health
DX: J20.9 Acute bronchitis, unspecified (principal)
CPT/HCPCS: 71046

== ENCOUNTER 2021-10-16 09:32 | Outpatient (CLI) | payer MEDICARE, OTHER, SELFPAY ==
--- NOTE | 2021-10-16 09:41 | MM_ITS ---
WS: [id number] SCREENING DIGITAL MAMMOGRAM WITH CAD HISTORY: SCREENING COMPARISON: 08/16/2020, 05/13/2019 and 03/05/2018 Bilateral CC and MLO views submitted. Computer aided detection analyzed. Breast composition: There are scattered areas of fibroglandular density. Cluster of ill-defined calci fications noted on the RIGHT MLO projection posteriorly just above the nipple line. There is an addit ional cluster of calcification central to the nipple on the CC projection at a middle depth. These ca lcifications may not correspond to the calcifications noted on the MLO projection. Vascular calcifications bilaterally. LEFT breast is negative for suspicious calcifications. MM/[place] [id number] IMPRESSION: BI-RADS: 0-Incomplete: Need additional imaging evaluation FOLLOW UP: Need Additional Imaging RIGHT BREAST: Magnification views of suspicious calcification CC and MLO. True ML. Recommend additional exaggerated RIGHT CC and order to attempt localization of the calcifications in the posterior RIGHT breast which may not be present o n the CC projection.
== END 2021-10-16 09:33 | disposition home or self-care (01) ==
PROVIDERS: PCP Family Medicine; Visit Provider Family Medicine
DX: Z12.31 Encounter for screening mammogram for malignant neoplasm of breast (principal)
CPT/HCPCS: 77067

== ENCOUNTER 2021-11-20 11:02 | Outpatient (CLI) | payer MEDICARE, OTHER, SELFPAY ==
--- NOTE | 2021-11-20 11:13 | MM_ITS ---
WS: [id number] Right breast diagnostic 3D tomosynthesis digital mammogram, 11/20/2021 Clinical Data: ABNORMAL MAMMOGRAM RT BREAST Comparison: 10/16/2021, 08/16/2020, 05/13/2019, 03/05/2018, 11/23/2016, 11/12/2016, 12/12/2011, 09/22/2007. Findings: Right CC, right MLO and right ML views were obtained. There are vascular calcifications. No spiculate d masses or clustered calcifications are seen in the central right breast.. MM/[place] [id number] Impression: Negative right breast mammogram BIRADS: 1-Negative FOLLOW UP: 1 Year Follow-up The CAD credit checker was used.
== END 2021-11-20 11:03 | disposition home or self-care (01) ==
LOC: RADSHAW 11:06
PROVIDERS: PCP Family Medicine; Visit Provider Family Medicine
DX: R92.8 Other abnormal and inconclusive findings on diagnostic imaging of breast (principal)
CPT/HCPCS: 77061

== ENCOUNTER 2021-11-30 12:54 | Outpatient (CLI) | payer MEDICARE, OTHER, SELFPAY ==
--- NOTE | 2021-11-30 13:40 | XR_ITS ---
WS: [id number] Right rib detail, 3 views, 11/30/2021 Clinical Data: RIGHT SIDED RIB PAIN Comparison: None. Findings: There is a healed fracture of the lateral aspect of the right sixth rib. The remainder of the ribs is normal. No acute fractures are seen. There is no right pneumothorax or subcutaneous emphysema. There are clips in the right upper quadrant from a cholecystectomy. There is a minimal dextroscoliosis wit h osteoarthritis of the thoracic vertebral bodies. XR/XR ribs RT 2V* [id number] Impression: 1. Negative for acute right rib fracture. 2. Old lateral right sixth rib fracture.
== END 2021-11-30 12:55 | disposition home or self-care (01) ==
LOC: RAD 12:56
PROVIDERS: PCP Family Medicine; Visit Provider Family Medicine
DX: R07.81 Pleurodynia (principal)
CPT/HCPCS: 71100

== ENCOUNTER 2021-12-12 06:00 | Outpatient (RCR) | payer MEDICARE, OTHER, SELFPAY | END 2022-01-06 23:59 | disposition home or self-care (01) | LOC: SPT 06:00 | PROVIDERS: PCP Family Medicine; Referring Provider Family Medicine; Visit Provider Family Medicine | DX: M54.9 Dorsalgia, unspecified (principal); R07.81 Pleurodynia | CPT/HCPCS: 97110; 97161 ==

== ENCOUNTER 2022-01-07 06:00 | Outpatient (RCR) | payer MEDICARE, OTHER, SELFPAY | END 2022-01-23 23:00 | disposition home or self-care (01) | LOC: SPT 06:00 | PROVIDERS: PCP Family Medicine; Referring Provider Family Medicine; Visit Provider Family Medicine | DX: R07.81 Pleurodynia (principal) | CPT/HCPCS: 97110 ==

== ENCOUNTER → 2022-07-05 08:46 | Outpatient (BNVA) | payer MEDICARE, OTHER, SELFPAY | PROVIDERS: PCP Family Medicine; Visit Provider Family Medicine | DX: K92.2 Gastrointestinal hemorrhage, unspecified (principal); E11.9 Type 2 diabetes mellitus without complications | CPT/HCPCS: 80048; 85025 ==

== ENCOUNTER → 2022-07-12 09:13 | Outpatient (BNVA) | payer MEDICARE, OTHER, SELFPAY | PROVIDERS: PCP Family Medicine; Visit Provider Family Medicine | DX: K92.2 Gastrointestinal hemorrhage, unspecified (principal); E11.9 Type 2 diabetes mellitus without complications | CPT/HCPCS: 85025 ==

== ENCOUNTER → 2022-07-27 08:23 | Outpatient (BNVA) | payer MEDICARE, OTHER, SELFPAY | PROVIDERS: PCP Family Medicine; Visit Provider Family Medicine | DX: R10.9 Unspecified abdominal pain (principal); M79.10 Myalgia, unspecified site; K92.2 Gastrointestinal hemorrhage, unspecified | CPT/HCPCS: 80053; 82550; 83690; 85025; 86140 ==

== ENCOUNTER 2022-08-01 07:30 | Outpatient (CLI) | payer MEDICARE, OTHER, SELFPAY ==
[2022-08-01] MEDS: iohexol 350 mg/mL 100 mL Btl PO (07:52)
[2022-08-01] MEDS: iohexol 350 mg/mL 500 mL Btl (per mL) IV (07:54)
--- NOTE | 2022-08-01 09:00 | CT_ITS ---
WS: [id number] CT ABDOMEN AND PELVIS WITH CONTRAST HISTORY: Abdominal pain, black stools. TECHNIQUE: Imaging performed of the abdomen and pelvis with IV contrast. Single phase imaging of the abdomen. Coronal and sagittal reformats are submitted. All CT scans at [facility] use at [address] one of these dose optimization techniques: automated exposure control; mA and/or kV adjustment per patient size (includes targeted exams where dose is matched to clinical indication); or iterative re construction. IV CONTRAST: Omnipaque 350; 95 mL IV. Oral contrast: Yes. DLP: 1138.31 mGy.cm COMPARISON: 01/11/2020 Lower thorax: Lung bases are clear. Heart is normal size. Small hiatal hernia. Esophageal varicositie s are noted. Liver/biliary system: Mild coarse echotexture throughout the liver. Very slight nodularity along the surface. No mass identified. Caudate lobe is mildly prominent. Partial filling defect noted within th e main portal vein. Portal vein thrombosis extends into the SMV where there is at least 50% occlusio n. Splenic vein is patent. Gallbladder: Status post cholecystectomy. Pancreas: Normal size pancreas and pancreatic duct. No adjacent inflammation. Spleen: Mild splenomegaly at 13.6 cm in length. No significant increase in size since 2019. Adrenal glands: Normal. Right kidney: Normal. Left kidney: Normal. Aorta: Mild atherosclerosis with no aneurysm. Lymphadenopathy: None. Free fluid: None. GI tract: Nondistended stomach. No small bowel obstruction. No colon obstruction. Prior appendectomy. Mild fecal retention within the distal colon. Abdominal wall: Fat containing umbilical hernia. Pelvis: No free fluid or adenopathy within the pelvis. Prior hysterectomy. Bones: Unremarkable. CT/CT abdomen pelvis w con* [id number] IMPRESSION: 1. 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 New since 01/11/2020. 2. Changes of mild cirrhosis. 3. Esophageal varices. 4. Prior cholecystectomy, appendectomy and hysterectomy. 5. Mild splenomegaly. Notified Sunny Tian MD at 08/01/2022 12:31 PM.
== END 2022-08-01 07:31 | disposition home or self-care (01) ==
LOC: RAD 07:36
PROVIDERS: PCP Family Medicine; Visit Provider Family Medicine
DX: R19.5 Other fecal abnormalities (principal); I81 Portal vein thrombosis; K74.60 Unspecified cirrhosis of liver; I85.00 Esophageal varices without bleeding; Z90.49 Acquired absence of other specified parts of digestive tract; Q42.8 Congenital absence, atresia and stenosis of other parts of large intestine; Z90.710 Acquired absence of both cervix and uterus; R16.1 Splenomegaly, not elsewhere classified
CPT/HCPCS: 74177; Q9967

== ENCOUNTER 2022-08-25 19:31 | Emergency (ER) | payer OTHER, MEDICARE, SELFPAY ==
[2022-08-25 19:34] VITALS: BP 163/72; PULSE 81; RESP 19; TEMP 36.9; O2SAT 97; BMI 27.2
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
[2022-08-25 19:58] VITALS: BP 157/77; PULSE 81; RESP 22; O2SAT 97
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
[2022-08-25 20:51] LABS: Basophils % 1.1 %; Eosinophils # 0.1 10^3/uL (0.0-0.8); Eosinophils % 3.6 %; Hematocrit 32.6 % (37.0-47.0); Hemoglobin 10.7 g/dL (11.5-15.3); Lymphocytes # 0.7 10^3/uL (0.8-4.8); Lymphocytes % 19.2 %; Mean Corpuscular HGB Conc 32.8 g/dL (30.0-36.0); Mean Corpuscular Hemoglobin 29.4 pg (28.0-34.0); Mean Corpuscular Volume 89.6 fl (81-99); Mean Platelet Volume 12.9 fL (7.4-10.4); Monocytes # 0.3 10^3/uL (0.2-0.9); Neutrophils # 2.47 10^3/uL (1.8-7.7); Neutrophils % 68.8 %; Nucleated Red Blood Cells % 0 %; Platelet Count 69 10^3/cmm (130-400); Red Blood Count 3.64 10^6/uL (4.1-5.3); White Blood Count 3.6 10^3/uL (4.0-10.0)
[2022-08-25 21:04] LABS: INR 1.09 (0.8-1.2)
[2022-08-25 21:20] LABS: Alanine Aminotransferase 17 U/L (0-33); Albumin Level 3.8 g/dL (3.5-5.2); Alkaline Phosphatase 76 U/L (35-105); Aspartate Amino Transferase 29 U/L (0-32); Blood Urea Nitrogen 15 mg/dL (8-23); Calcium 8.9 mg/dL (8.5-10.5); Carbon Dioxide 22 mmol/L (22-29); Chloride 103 mmol/L (98-107); Globulin 3.3 g/dL (1.3-4.6); Glomerular Filtration Rate 49.2 mL/min (90-130); Glucose 280 mg/dL (65-115); Osmolality Calculated 293 mOsm/kg (285-295); Sodium 136 mmol/L (136-145); Total Bilirubin 0.3 mg/dL (0.15-1.2); Total Protein 7.1 g/dL (6.6-8.7)
[2022-08-25 21:31] VITALS: BP 138/88; PULSE 93; RESP 25; O2SAT 97
[2022-08-25] MEDS: iohexol 350 mg/mL 500 mL Btl (per mL) IV (21:35)
[2022-08-25 21:55] VITALS: BP 138/88; PULSE 89; RESP 26; O2SAT 92
== END 2022-08-25 21:56 | disposition home or self-care (01) ==
PROVIDERS: Emergency Provider Emergency Medicine; PCP Family Medicine
DX: Z04.1 Encounter for examination and observation following transport accident (principal); D61.818 Other pancytopenia; Z79.82 Long term (current) use of aspirin; Z79.84 Long term (current) use of oral hypoglycemic drugs; E11.9 Type 2 diabetes mellitus without complications; I10 Essential (primary) hypertension; V89.2XXA Person injured in unspecified motor-vehicle accident, traffic, initial encounter
CPT/HCPCS: 70450; 71260; 72125; 74177; 80053; 85025; 85610; 99285; Q9967

== ENCOUNTER → 2022-09-24 12:43 | Outpatient (BNVA) | payer MEDICARE, OTHER, SELFPAY | PROVIDERS: PCP Family Medicine; Visit Provider Family Medicine | DX: R10.9 Unspecified abdominal pain (principal); K92.2 Gastrointestinal hemorrhage, unspecified | CPT/HCPCS: 80053; 85025 ==

== ENCOUNTER 2022-11-21 09:27 | Outpatient (CLI) | payer MEDICARE, OTHER, SELFPAY ==
--- NOTE | 2022-11-21 09:36 | MM_ITS ---
WS: [id number] BILATERAL SCREENING DIGITAL TOMOSYNTHESIS MAMMOGRAM WITH CAD HISTORY: SCREENING COMPARISON: 11/20/2021, 10/16/2021, 08/16/2020 Bilateral CC and MLO views with tomosynthesis and synthetic mammography submitted. Computer aided det ection analyzed. Breast composition: There are scattered areas of fibroglandular density. No suspicious masses, microc alcifications or architectural distortion. Stable asymmetries in each breast. Breast arterial calcifi cations. MM/[place] [id number] IMPRESSION: BI-RADS: 2-Benign FOLLOW UP: 1 Year Follow-up
== END 2022-11-21 09:28 | disposition home or self-care (01) ==
LOC: RAD 09:30
PROVIDERS: PCP Family Medicine; Visit Provider Family Medicine
DX: Z12.31 Encounter for screening mammogram for malignant neoplasm of breast (principal)
CPT/HCPCS: 77063; 77067

== ENCOUNTER → 2022-12-06 13:08 | Outpatient (BNVA) | payer MEDICARE, OTHER, SELFPAY | PROVIDERS: PCP Family Medicine; Visit Provider Family Medicine | DX: K74.60 Unspecified cirrhosis of liver (principal); K92.2 Gastrointestinal hemorrhage, unspecified; E11.9 Type 2 diabetes mellitus without complications | CPT/HCPCS: 80053; 83036; 85025 ==

== ENCOUNTER → 2023-02-27 10:39 | Outpatient (BNVA) | payer MEDICARE, OTHER, SELFPAY | PROVIDERS: PCP Family Medicine; Visit Provider Family Medicine | DX: K74.60 Unspecified cirrhosis of liver (principal); E11.9 Type 2 diabetes mellitus without complications; K29.70 Gastritis, unspecified, without bleeding; R10.9 Unspecified abdominal pain | CPT/HCPCS: 80053; 83036; 85025 ==

== ENCOUNTER → 2023-05-29 09:25 | Outpatient (BNVA) | payer MEDICARE, OTHER, SELFPAY | PROVIDERS: PCP Family Medicine; Visit Provider Family Medicine | DX: R10.9 Unspecified abdominal pain (principal); E11.9 Type 2 diabetes mellitus without complications; K74.60 Unspecified cirrhosis of liver | CPT/HCPCS: 80053; 80061; 83036; 85025 ==

== ENCOUNTER → 2023-08-27 10:34 | Outpatient (BNVA) | payer MEDICARE, OTHER, SELFPAY | PROVIDERS: PCP Family Medicine; Visit Provider Family Medicine | DX: E11.9 Type 2 diabetes mellitus without complications (principal); K74.60 Unspecified cirrhosis of liver; F32.A Depression, unspecified; R07.9 Chest pain, unspecified | CPT/HCPCS: 80053; 80061; 83036; 85025 ==

== ENCOUNTER 2023-11-26 08:28 | Outpatient (CLI) | payer MEDICARE, OTHER, SELFPAY ==
--- NOTE | 2023-11-26 08:40 | XR_ITS ---
WS: [id number] Lumbar spine, 3 views, 11/26/2023 Clinical Data: low back pain Comparison: Lumbar spine, 04/13/2021 Findings: There are 6 lumbar vertebral bodies. There is a decrease in the L2-L3 vertebral body height with prom inent anterior osteophytes L2-L4. Smaller osteophytes are present at all the other lumbar vertebral b odies. No compression fractures are seen. There are cholecystectomy clips in the right upper quadrant. Impression: 1. Degenerative disc narrowing at L2-L3. 2. Osteoarthritis of all the lumbar vertebral bodies.
== END 2023-11-26 08:29 | disposition home or self-care (01) ==
LOC: RAD 08:30
PROVIDERS: PCP Family Medicine; Visit Provider Family Medicine
DX: M51.36 Other intervertebral disc degeneration, lumbar region (principal); M47.816 Spondylosis without myelopathy or radiculopathy, lumbar region; R07.9 Chest pain, unspecified; E11.9 Type 2 diabetes mellitus without complications; K74.60 Unspecified cirrhosis of liver; F32.A Depression, unspecified
CPT/HCPCS: 72100; 80053; 80061; 83036; 85025

== ENCOUNTER 2023-12-05 22:33 | Emergency (ER) | payer MEDICARE, OTHER, SELFPAY ==
[2023-12-05 22:47] VITALS: BP 152/75; PULSE 88; RESP 16; TEMP 36.8; O2SAT 94
--- NOTE | 2023-12-05 23:59 | CTR_ITS ---
PROCEDURE INFORMATION: Exam: CT Abdomen And Pelvis With Contrast Exam date and time: 12/06/2023 1:04 AM Age: 68 years old Clinical indication: Abdominal pain; Acute; Prior surgery; Surgery date: 6+ months; Surgery type: Gb, appendix, hyst, tubal; Additional info: Llq abd pain TECHNIQUE: Imaging protocol: Computed tomography of the abdomen and pelvis with contrast. Radiation optimization: All CT scans at this facility use at least one of these dose optimization techniques: automated exposure control; mA and/or kV adjustment per patient size (includes targeted exams where dose is matched to clinical indication); or iterative reconstruction. Contrast material: OMNI 359; Contrast volume: 100 ml; Contrast route: INTRAVENOUS (IV); COMPARISON: CT chest abdpel w/*[id number] 08/25/2022 9:07 PM RADIATION DOSE METRICS: Total DLP (mGy-cm): 704.7 FINDINGS: Liver: Normal. No mass. Gallbladder and bile ducts: The gallbladder is absent. Pancreas: Normal. No ductal dilation. Spleen: Normal. No splenomegaly. Adrenal glands: Normal. No mass. Kidneys and ureters: Normal. No hydronephrosis. Stomach and bowel: Unremarkable. No obstruction. No mucosal thickening. Appendix: The appendix is not visualized but there are no secondary signs of acute appendicitis. Intraperitoneal space: Unremarkable. No free air. No significant fluid collection. Vasculature: Nonocclusive thrombus is again noted in the main portal vein extending to the portal confluence. Lymph nodes: Unremarkable. No enlarged lymph nodes. Urinary bladder: Unremarkable as visualized. Reproductive: Unremarkable as visualized. Bones/joints: Unremarkable. No acute fracture. Soft tissues: Unremarkable. CT/CT abdomen pelvis w con* [id number] IMPRESSION: 1. Nonocclusive thrombus is again noted in the main portal vein extending to the portal confluence. 2. No bowel obstruction or inflammatory process associated with the bowel. 3. No free air or significant free fluid in the abdomen or pelvis. 4. No evidence of appendicitis.
[2023-12-06 00:03] LABS: Bacteria Urine TRACE /hpf; Bilirubin Urine Neg (Negative); Blood Urine 3+ (Negative); Glucose Urine UA 4+ (Normal); Ketones Urine Negative (Negative); Leukocyte Esterase Urine 1+ (Negative); Mucus Urine 1+ /hpf; Nitrate Urine Negative (Negative); Protein Urine 2+ (Negative); Specific Gravity, Urine 1.025 (1.005-1.030); Squamous Epithelial Cell Urine 0-4 /hpf (0-5); Urine Appearance SL Hazy (CLEAR); Urine Color Yellow (Yellow); Urobilinogen Urine Neg (Negative); pH Urine 5 (5-7)
[2023-12-06 00:04] LABS: Add Urine Culture? Yes
[2023-12-06 00:30] LABS: Basophils % 0.9 %; Eosinophils # 0.2 10^3/uL (0.0-0.8); Eosinophils % 4.6 %; Hematocrit 31.5 % (36-47); Lymphocytes # 0.8 10^3/uL (0.8-4.8); Lymphocytes % 21.8 %; Mean Corpuscular HGB Conc 34.9 g/dL (30-55); Mean Corpuscular Hemoglobin 29.9 pg (27-33); Mean Corpuscular Volume 85.6 fl (85-98); Mean Platelet Volume 13.9 fL (7.4-10.4); Monocytes # 0.3 10^3/uL (0.2-0.9); Monocytes % 9.2 %; Neutrophils % 63.2 %; Nucleated Red Blood Cells % 0 %; Platelet Count 90 10^3/cmm (157-399); Red Blood Count 3.68 10^6/uL (3.85-5.65); White Blood Count 3.48 10^3/uL (3.29-11.43)
[2023-12-06 00:38] LABS: Alanine Aminotransferase 18 U/L (0-33); Albumin Level 4.1 g/dL (3.5-5.2); Alkaline Phosphatase 77 U/L (35-105); Blood Urea Nitrogen 18 mg/dL (8-23); Calcium 8.7 mg/dL (8.5-10.5); Carbon Dioxide 21 mmol/L (22-29); Chloride 104 mmol/L (98-107); Creatinine Clr Calc Pharmacy 39.6931; Globulin 2.8 g/dL (1.3-4.6); Glomerular Filtration Rate 44.4 mL/min (90-130); Glucose 272 mg/dL (65-115); Osmolality Calculated 294 mOsm/kg (285-295); Sodium 136 mmol/L (136-145); Total Bilirubin 0.4 mg/dL (0.15-1.2); Total Protein 6.9 g/dL (6.6-8.7)
[2023-12-06 00:39] LABS: Anion Gap 15.2 (5-19); Aspartate Amino Transferase 30 U/L (0-32); Potassium 4.2 mmol/L (3.5-5.1)
[2023-12-06 00:43] LABS: Slide Review Slide Review Perform
[2023-12-06 00:45] LABS: Procalcitonin 0.15 ng/mL (0-0.5)
[2023-12-06] MEDS: iohexol 350 mg/mL 500 mL Btl (per mL) IV (01:16)
--- NOTE | 2023-12-06 02:51 | ED_ITS ---
HPI - Back Pain/Injury 2 General: Chief Complaint: Back Pain/Injury Stated Complaint: Back Pain\Rectal Bleeding Time Seen by Provider: 12/05/23 23:22 History of Present Illness: 68-year-old female presents to the emerg ency department with complaints of left lower quadrant abdominal pain and low back pain. She states she has a longstanding history of chronic back pain and states she was seen by her primary care provider and her pain is mostly managed with muscle relaxers although she states that she has not been unable to seed cone picker the prescription that he sent her. Patient states he also has a history of hemorrhoids and has noticed some intermittent blood on the tissue paper after she has a bowel movement. She states she also has a history of a blood clot in her liver. She states her current pain is a 5 out of 10 and is also concerned and wants her liver evaluated to see if her blood clot has progressed. Associated symptoms: Reports abdominal pain, nausea and urinary urgency Review of Systems 2 General: Reports: 10 or more systems reviewed and unremarkable except in HPI and below GI: Reports: abdominal pain, nausea and rectal itching : Reports: urinary frequency and urinary urgency Musc: Reports: back pain PFS ED 2 PFSH: Medical History Depression Osteoarthritis Type 2 diabetes mellitus Hypertension Diabetes GERD (gastroesophageal reflux disease) Surgical History History of esophagogastroduodenoscopy (EGD) History of bilateral tubal ligation (~1985) History of hysterectomy (~2005) History of cholecystectomy History of appendectomy Family History Denies family history of Anesthesia complication Bleeding disorder Social History Smoking and tobacco/nicotine status: never used tobacco/nicotine Second hand smoke exposure: No Alcohol intake: never Substance/Drug Use: never Adopted: No Caregiver/support person: No Lives independently: Yes Household members: spouse Housing: House Marital status: Current occupational status: retired Current occupational exposures/hazards: No Sexually active: No Do you think of yourself as: Straight/Heterosexual Current gender identity: Female Minal/Restorationism: Jainism Physical Exam 2 Narrative: EXAM NARRATIVE: General: Alert, no acute distress. Skin: Warm, dry, Intact. Head: Normocephalic, atraumatic. Neck: Supple, trachea midline. Eye: Extraocular movements are intact. PERRLA Ears, nose, mouth and throat: mucosa moist. Cardiovascular: Regular, Normal peripheral perfusion. Respiratory: Lungs are clear to auscultation, respirations are non-labored, breath sounds are equal, Symmetrical chest wall expansion. Gastrointestinal: Soft, Nontender, Non distended, Normal bowel sounds. Musculoskeletal: Normal ROM, no deformity. Neurological: Alert and oriented, No focal neurological deficit observed. Psychiatric: Cooperative, appropriate mood & affect. Course 2 Vital Signs: Vital signs: Vital Signs Temperature 98.3 F 12/06/23 03:09 Pulse Rate 96 12/06/23 03:09 Respiratory Rate 16 12/06/23 03:09 Blood Pressure 152/75 12/06/23 03:09 Pulse Oximetry 97 12/06/23 03:09 Oxygen Delivery Me thod Room Air 12/05/23 22:47 MDM - Back Pain/Injury Medical Decision Making Physical exam completed and documented I did review the patient's previous radiographic and medical records. I did obtain a CBC and CMP which demonstrated slightly low platelets at 90, hemoglobin of 11 hematocrit of 31.5. Her creatinine was 1.2 and BUN of 18. Blood glucose was 272. CT scan of her abdomen pelvis again demonstrated nonocclusive thrombus in the main portal vein extending to the portal confluence, no bowel obstruction or inflammatory process no free air or significant free fluid. Medical Records I reviewed the patient's medical records. Labs I reviewed the patient's lab results. 12/05/23 23:30 12/05/23 23:30 Radiology Impressions Abdomen/Pelvis CT 12/05/23 23:59 IMPRESSION: 1. Nonocclusive thrombus is again noted in the main portal vein extending to the portal confluence. 2. No bowel obstruction or inflammatory process associated with the bowel. 3. No free air or significant free fluid in the abdomen or pelvis. 4. No evidence of appendicitis. Laboratory Results WBC 3.48 10^3/uL (3.29-11.43) 12/05/23 23:30 RBC 3.68 10^6/uL (3.85-5.65) L 12/05/23 23:30 Hgb 11.00 g/dL (11.27-16.99) L 12/05/23 23: Hct 31.5 % (36-47) L 12/05/23 23:30 MCV 85.6 fl (85-98) 12/05/23 23: MCH 29.9 pg (27-33) 12/05/23 23: MCHC 34.9 g/dL (30-55) 12/05/23 23: RDW 13.0 % (12.1-15.1) 12/05/23 23: Plt Count 90 10^3/cmm (157-399) L 12/05/23 23:30 MPV 13.9 fL (7.4-10.4) H 12/05/23 23: Neut % (Auto) 63.2 % 12/05/23 23: Lymph % (Auto) 21.8 % 12/05/23 23: Hawkins % (Auto) 9.2 % 12/05/23 23: Eos % (Auto) 4.6 % 12/05/23 23: Baso % (Auto) 0.9 % 12/05/23 23:30 Neut # (Auto) 2.20 10^3/uL (1.8-7.7) 12/05/23 23: Lymph # (Auto) 0.8 10^3/uL (0.8-4.8) 12/05/23 23:30 Hawkins # (Auto) 0.3 10^3/uL (0.2-0.9) 12/05/23 23: Eos # (Auto) 0.2 10^3/uL (0.0-0.8) 12/05/23 23:30 Baso # (Auto) 0.0 10^3/uL (0.0-0.1) 12/05/23 23: Nucleated RBC % (auto) 0 % 12/05/23: Nucleated RBCs # 0.0 /100WBC 12/05/23 23: Sodium 136 mmol/L (136-145) 12/05/23 23:30 Potassium 4.2 mmol/L (3.5-5.1) 12/05/23 23: Chloride 104 mmol/L (98-107) 12/05/23 23: Carbon Dioxide 21 mmol/L (22-29) L 12/05/23 23:30 Anion Gap 15.2 (5-19) 12/05/23 23:30 BUN 18 mg/dL (8-23) 12/05/23 23:30 Creatinine 1.2 mg/dL (0.5-0.9) H 12/05/23 23:30 GFR Calculation 44.4 mL/min (90-130) L 12/05/23 23:30 Glucose 272 mg/dL (65-115) H 12/05/23 23:30 Calculated Osmolality 294 mOsm/kg (285-295) 12/05/23 23:30 Calcium 8.7 mg/dL (8.5-10.5) 12/05/23 23:30 Total Bilirubin 0.4 mg/dL (0.15-1.2) 12/05/23 23:30 AST 30 U/L (0-32) 12/05/23 23:30 ALT 18 U/L (0-33) 12/05/23 23:30 Alkaline Phosphatase 77 U/L (35-105) 12/05/23 23:30 Total Protein 6.9 g/dL (6.6-8.7) 12/05/23 23:30 Albumin 4.1 g/dL (3.5-5.2) 12/05/23 23:30 Globulin 2.8 g/dL (1.3-4.6) 12/05/23 23:30 Procalcitonin 0.15 ng/mL (0-0.5) 12/05/23 23:30 Urine Color Yellow (Yellow) 12/05/23 23:35 Urine Appearance Sl hazy (CLEAR) A 12/05/23 23:35 Urine pH 5 (5-7) 12/05/23 23:35 Ur Specific Wright 1.025 (1.005-1.030) 12/05/23 23:35 Urine Protein 2+ (Negative) H 12/05/23 23:35 Urine Glucose (UA) 4+ (Normal) H 12/05/23 23:35 Urine Ketones Negative (Negative) 12/05/23 23:35 Urine Blood 3+ (Negative) H 12/05/23 23:35 Urine Nitrate Negative (Negative) 12/05/23 23:35 Urine Bilirubin Neg (Negative) 12/05/23 23:35 Urine Urobilinogen Neg mg/dL (Negative) 12/05/23 23:35 Ur Leukocyte Esterase 1+ (Negative) H 12/05/23 23:35 Urine RBC 5-10 /hpf (0-2) H 12/05/23 23:35 Urine WBC 10-15 /hpf (0-5) H 12/05/23 23:35 Ur Squamous Epith Cells 0-4 /hpf (0-5) H 12/05/23 23:35 Amorphous Sediment Not Reportable 12/05/23 23:35 Urine Bacteria Trace /hpf (NONE) 12/05/23 23:35 Urine Mucus 1+ /hpf 12/05/23 23:35 All radiology interpretation(s) finalized by discharge Discharge Plan Discharge Patient Disposition: Home Clinical Impression: Low back pain, Acute UTI, Hemorrhoids Condition: Stable Prescriptions: No Action aspirin 81 mg tablet,delayed release (DR/EC) 81 mg PO QAM Hold Instructions: Resume on 01/28/20. (DME) DIABETIC SHOES See Rx Instructions .ROUTE .MEDSUPPLY Qty: 1 0RF Rx Instructions: with custom inserts aripiprazole 30 mg tablet 30 mg PO DAILY Qty: 30 11RF Januvia 50 mg tablet 50 mg PO DAILY Qty: 30 11RF acetaminophen [Tylenol Extra Strength] 500 mg Tablet 1,000 mg PO PRN diphenhydramine HCl [Allergy Relief(diphenhydramin)] 25 mg Tablet 25 mg PO QAM nitrofurantoin monohyd/m-cryst 100 mg capsule 100 mg PO Q12H Rx Instructions: FOR 7 DAYS cyclobenzaprine 10 mg tablet 10 mg PO Q8H PRN (Reason: Muscle Spasm) carvedilol 12.5 mg tablet 12.5 mg PO BID amlodipine 10 mg tablet 10 mg PO DAILY esomeprazole magnesium 40 mg capsule,delayed release(DR/EC) 40 mg PO BID glimepiride 4 mg tablet 4 mg PO BID hydrochlorothiazide 25 mg tablet 25 mg PO DAILY Hold Instructions: Adverse Reaction ondansetron 8 mg tablet,disintegrating 8 mg PO .q6 PRN (Reason: nausea and vomiting) Qty: 14 0RF Discharge Orders: Discharge ED (Routine); Ordered 12/06/23 Ordered By: Chay Lentz Referrals: Ankit Goodman DO [Physician] - Scarlett,Bon, DO [Physician] - Sunny Tian MD [Primary Care Provider] - Discharge Diet: Usual diet Discharge Activity: Resume usual activity Patient Instructions: Opioid Safety, Pain Management Activity Restrictions/Additional Instructions: Activity Restrictions/Additional Instructions: Thank you for choosing [facility] for your healthcare needs today. Please realize that you were seen in the Emergency Department and that we are providing you with an emergency medical screening exam and this may not be a complete and all inclusive of all the testing and or medical work-up that you may need to determine your ailment or severity of your illness. It is very important that you follow-up as instructed with your Primary care provider or Specialist for additional evaluation and to discuss your medical treatment plan. Coding Level of Care Code ED Chromium Plater for Shahram Woodson
[2023-12-06] MEDS: orphenadrine 30 mg/mL Inj 2 mL 60 MG IVP (02:55)
[2023-12-06 02:58] VITALS: PULSE 96; RESP 16; O2SAT 97
[2023-12-06 03:09] VITALS: BP 152/75; PULSE 96; RESP 16; TEMP 36.8; O2SAT 97
== END 2023-12-06 03:10 | disposition home or self-care (01) ==
PROVIDERS: Emergency Provider Internal Medicine; PCP Family Medicine
DX: M54.50 Low back pain, unspecified (principal); N39.0 Urinary tract infection, site not specified; K64.9 Unspecified hemorrhoids; Z79.82 Long term (current) use of aspirin; Z79.84 Long term (current) use of oral hypoglycemic drugs; E11.9 Type 2 diabetes mellitus without complications; I10 Essential (primary) hypertension
CPT/HCPCS: 74177; 80053; 81001; 84145; 85025; 87086; 96374; 99285; J2360; Q9967

== ENCOUNTER → 2023-12-09 13:01 | Outpatient (BNVA) | payer MEDICARE, OTHER, SELFPAY | PROVIDERS: PCP Family Medicine; Visit Provider Family Medicine | DX: K92.2 Gastrointestinal hemorrhage, unspecified (principal) | CPT/HCPCS: 85025 ==

== ENCOUNTER 2023-12-13 10:50 | Emergency (ER) | payer MEDICARE, OTHER, SELFPAY ==
[2023-12-13 11:39] VITALS: BP 138/73; PULSE 97; RESP 18; TEMP 36.6; O2SAT 97; BMI 27.4
--- NOTE | 2023-12-13 12:39 | ED_ITS ---
HPI - Back Pain/Injury 2 General: Chief Complaint: Back Pain/Injury Stated Complaint: back pain Time Seen by Provider: 12/13/23 12:36 History of Present Illness: 68-year-old female with a history of hyp ertension and diabetes who presents to the emergency room with worsening urinary symptoms. She has been having back pain and dysuria. She was seen and started on antibiotics (Macrobid) a couple days ago and have been feeling better for a day or 2 and then suddenly today developed chills recurrent low back pain and weakness. states she also appeared confused. PFSH ED 2 PFSH: Medical History Depression Osteoarthritis Type 2 diabetes mellitus Hypertension Diabetes GERD (gastroesophageal reflux disease) Surgical History History of esophagogastroduodenoscopy (EGD) History of bilateral tubal ligation (~1985) History of hysterectomy (~2005) History of cholecystectomy History of appendectomy Family History Denies family history of Anesthesia complication Bleeding disorder Social History Smoking and tobacco/nicotine status: never used tobacco/nicotine Second hand smoke exposure: No Alcohol intake: never Substance/Drug Use: never Adopted: No Caregiver/support person: No Lives independently: Yes Household members: spouse Housing: House Marital status: Current occupational status: retired Current occupational exposures/hazards: No Sexually active: No Do you think of yourself as: Straight/Heterosexual Current gender identity: Female Minal/Mandaeism: [employer] Course 2 Vital Signs: Vital signs: Vital Signs Temperature 97.9 F 12/13/23 11:39 Pulse Rate 95 12/13/23 13:51 Respiratory Rate 16 12/13/23 14:48 Blood Pressure 161/72 12/13/23 14:48 Pulse Oximetry 93 12/13/23 14:48 Oxygen Delivery Me thod Room Air 12/13/23 14:48 MDM - Back Pain/Injury Medical Decision Making Medical decision making: Differential diagnosis including but not limited to and based on the above HPI, review of systems and physical exam: My main concern with this patient given that she is having rigors, low back pain and some confusion is that she has a continued urinary tract infection. I cannot also be concern for sepsis. Renal failure is in my differential as well. Orders placed to evaluate differential diagnosis based on the above differential, HPI and physical exam Lab Review: Laboratory results were reviewed and interpreted by myself the emergency room physician. Patient has mild leukopenia with a left shift at 90%. Hemoglobin is 10.6. Sodium is 130. BUN and creatinine are 13 and 0.9. Urine does appear infected. Lactate is 2.6. Bicarb is 23. Urine does appear concentrated which would indicate dehydration. Reexamination: Patient remained stable. No altered mental status. No increased work of breathing. She appears somewhat improved after fluids and antibiotics. Sofa score indicates that she is fairly low risk for sepsis. She has not been hypotensive. She has not been tachycardic. She has had no altered mental status while she has been here. No renal failure. She is a mild elevation in her lactic acidosis and leukopenia with left shift which might indicate at least some early seizures. Discussed with family to bring her back if she worsens. Sequential Organ Failure Assessment (SOFA) Score from [employer] on 12/13/2023 All calculations should be rechecked by clinician prior to use RESULT SUMMARY: 3 points Initial SOFA Scores <= predict <=3.3% mortality (see Evidence for details) INPUTS: Tesha? ?> 100 mm Hg FiO? ?> 21 % On mechanical ventilation ?> 0 = No Platelets, ?10&sup3;/?L ?> 2 = 50-99 [place] Coma Scale ?> 0 = 15 Bilirubin, mg/dL (&mu;mol/L) ?> 1 = 1.2?1.9 (20-32) Mean arterial pressure OR administration of vasoactive agents required ?> 0 = No hypotension Creatinine, mg/dL (&mu;mol/L) (or urine output) ?> 0 = <1.2 (<110) Labs 12/13/23 13:43 12/13/23 13:43 Laboratory Results WBC 3.86 10^3/uL (3.29-11.43) 12/13/23 13:43 Corrected WBC Cancelled 12/13/23 12:45 RBC 3.63 10^6/uL (3.85-5.65) L 12/13/23 13:43 Hgb 10.60 g/dL (11.27-16.99) L 12/13/23 13:43 Hct 30.1 % (36-47) L 12/13/23 13:43 MCV 82.9 fl (85-98) L 12/13/23 13:43 MCH 29.2 pg (27-33) 12/13/23 13:43 MCHC 35.2 g/dL (30-55) 12/13/23 13:43 RDW 12.5 % (12.1-15.1) 12/13/23 13:43 Plt Count 89 10^3/cmm (157-399) L 12/13/23 13:43 MPV 12.9 fL (7.4-10.4) H 12/13/23 13:43 Gran % Cancelled 12/13/23 12:45 Neut % (Auto) 88.9 % 12/13/23 13:43 Lymph % (Auto) 2.6 % 12/13/23 13:43 Summers % (Auto) 6.7 % 12/13/23 13:43 Eos % (Auto) 1.0 % 12/13/23 13:43 Baso % (Auto) 0.3 % 12/13/23 13:43 Neut # (Auto) 3.43 10^3/uL (1.8-7.7) 12/13/23 13:43 Lymph # (Auto) 0.1 10^3/uL (0.8-4.8) L 12/13/23 13:43 Summers # (Auto) 0.3 10^3/uL (0.2-0.9) 12/13/23 13:43 Eos # (Auto) 0.0 10^3/uL (0.0-0.8) 12/13/23 13:43 Baso # (Auto) 0.0 10^3/uL (0.0-0.1) 12/13/23 13:43 Absolute Gran (auto) Cancelled 12/13/23 12:45 Nucleated RBC % (auto) 0 % 12/13/23 13:43 Nucleated RBCs # 0.0 /100WBC 12/13/23 13:43 Sodium 130 mmol/L (136-145) L 12/13/23 13:43 Potassium 3.1 mmol/L (3.5-5.1) L 12/13/23 13:43 Chloride 91 mmol/L (98-107) L 12/13/23 13:43 Carbon Dioxide 23 mmol/L (22-29) 12/13/23 13:43 Anion Gap 19.1 (5-19) H 12/13/23 13:43 BUN 13 mg/dL (8-23) 12/13/23 13:43 Creatinine 0.9 mg/dL (0.5-0.9) 12/13/23 13:43 GFR Calculation 61.9 mL/min (90-130) L 12/13/23 13:43 Glucose 217 mg/dL (65-115) H 12/13/23 13:43 POC Glucose 217 mg/dL (70-110) H 12/13/23 12:53 Calculated Osmolality 277 mOsm/kg (285-295) L 12/13/23 13:43 Lactic Acid 2.7 mmol/L (0.5-2.2) H 12/13/23 13:43 Calcium 8.2 mg/dL (8.5-10.5) L 12/13/23 13:43 Total Bilirubin 1.2 mg/dL (0.15-1.2) 12/13/23 13:43 AST 41 U/L (0-32) H 12/13/23 13:43 ALT 26 U/L (0-33) 12/13/23 13:43 Alkaline Phosphatase 126 U/L (35-105) H 12/13/23 13:43 C-Reactive Protein 60.4 mg/L (0.0-4.9) H 12/13/23 13:43 Total Protein 6.4 g/dL (6.6-8.7) L 12/13/23 13:43 Albumin 3.3 g/dL (3.5-5.2) L 12/13/23 13:43 Globulin 3.1 g/dL (1.3-4.6) 12/13/23 13:43 Urine Color Yellow (Yellow) 12/13/23 12:45 Urine Appearance Cloudy (CLEAR) A 12/13/23 12:45 Urine pH 5 (5-7) 12/13/23 12:45 Ur Specific [place] 1.025 (1.005-1.030) 12/13/23 12:45 Urine Protein 3+ (Negative) H 12/13/23 12:45 Urine Glucose (UA) 2+ (Normal) H 12/13/23 12:45 Urine Ketones Negative (Negative) 12/13/23 12:45 Urine Blood 2+ (Negative) H 12/13/23 12:45 Urine Nitrate Negative (Negative) 12/13/23 12:45 Urine Bilirubin 2+ (Negative) H 12/13/23 12:45 Urine Urobilinogen 8 mg/dL (Negative) H 12/13/23 12:45 Ur Leukocyte Esterase 2+ (Negative) H 12/13/23 12:45 Urine RBC 0-4 /hpf (0-2) H 12/13/23 12:45 Urine WBC 15-25 /hpf (0-5) H 12/13/23 12:45 Ur Squamous Epith Cells 5-10 /hpf (0-5) H 12/13/23 12:45 Amorphous Sediment Not Reportable 12/13/23 12:45 Urine Bacteria 2+ /hpf (NONE) H 12/13/23 12:45 Coarse Granular Casts Rare /lpf 12/13/23 12:45 Urine Mucus Trace /hpf 12/13/23 12:45 No radiology studies performed this visit Other Data Assessment and plan: Urinary tract infection Dehydration Systemic inflammatory response syndrome - IV Rocephin, IV normal saline bolus, home on [employer]. - Discharged home - Discussed plan with patient. Answered any questions. - Evaluation and treatment of this problem were appropriate in the emergency setting. Discharge Plan Discharge Patient Disposition: Home Clinical Impression: Urinary tract infection, Dehydration, Systemic inflammatory response syndrome Condition: Stable Prescriptions: New ondansetron 8 mg tablet,disintegrating 8 mg PO .q6 PRN (Reason: nausea and vomiting) Qty: 14 0RF cefdinir 300 mg capsule 300 mg PO BID 10 Days Qty: 20 0RF No Action aspirin 81 mg tablet,delayed release (DR/EC) 81 mg PO QAM Hold Instructions: Resume on 01/28/20. (DME) DIABETIC SHOES See Rx Instructions .ROUTE .MEDSUPPLY Qty: 1 0RF Rx Instructions: with custom inserts aripiprazole 30 mg tablet 30 mg PO DAILY Qty: 30 11RF Januvia 50 mg tablet 50 mg PO DAILY Qty: 30 11RF acetaminophen [Tylenol Extra Strength] 500 mg Tablet 1,000 mg PO PRN diphenhydramine HCl [Allergy Relief(diphenhydramin)] 25 mg Tablet 25 mg PO QAM nitrofurantoin monohyd/m-cryst 100 mg capsule 100 mg PO Q12H Rx Instructions: FOR 7 DAYS cyclobenzaprine 10 mg tablet 10 mg PO Q8H PRN (Reason: Muscle Spasm) carvedilol 12.5 mg tablet 12.5 mg PO BID amlodipine 10 mg tablet 10 mg PO DAILY esomeprazole magnesium 40 mg capsule,delayed release(DR/EC) 40 mg PO BID glimepiride 4 mg tablet 4 mg PO BID hydrochlorothiazide 25 mg tablet 25 mg PO DAILY Discharge Orders: Discharge ED (Routine); Ordered 12/13/23 Ordered By: Kayleigh Johnson Referrals: Sunny Tian MD [Primary Care Provider] - (You have been screened and evaluated and felt safe for discharge. Health conditions do change or evolve sometimes and as such it is important that you follow up with your Primary Doctor to be re checked, 3-5 days is a general good time frame for follow up. You are always welcome to return to the ED for re assessment if your symptoms are worsening or you have new concerns) Discharge Diet: Advance as tolerated Discharge Activity: Resume usual activity Patient Instructions: Urinary Tract Infection in Older Adults (ED) Coding Level of Care Code ED Pathologist for Shahram Woodson
[2023-12-13 12:49] VITALS: BP 152/63; RESP 16; O2SAT 95
[2023-12-13 12:55] LABS: Glucose Point of Care 217 mg/dL (70-110)
[2023-12-13 13:27] LABS: Bilirubin Urine 2+ (Negative); Blood Urine 2+ (Negative); Glucose Urine UA 2+ (Normal); Ketones Urine Negative (Negative); Leukocyte Esterase Urine 2+ (Negative); Nitrate Urine Negative (Negative); Protein Urine 3+ (Negative); Specific Gravity, Urine 1.025 (1.005-1.030); Urine Appearance Cloudy (CLEAR); Urine Color Yellow (Yellow); Urobilinogen Urine 8 mg/dL (Negative); pH Urine 5 (5-7)
[2023-12-13 13:30] LABS: Bacteria Urine 2+ /hpf; RBC Urine 0-4 /hpf (0-2); WBC Urine 15-25 /hpf (0-5)
[2023-12-13 13:31] LABS: Add Urine Culture? Yes; Coarse Granular Casts Urine RARE /lpf; Mucus Urine TRACE /hpf
--- NOTE | 2023-12-13 13:35 | PC.PHAR ---
LAB IS WORKING WITH PT TO GET BLOOD CULTURES. WILL FOLLOW UP SOON PT IS AVAILABLE WITHOUT INTERFERING WITH PT CARE. 12/13/23
[2023-12-13] MEDS: cefTRIAXone 1,000 MG in sodium chloride 0.9% (plus) 50 ML 100 MG IV (13:47)
[2023-12-13] MEDS: sodium chloride 0.9% 1,000 ML 999 ML IV (13:48)
[2023-12-13 13:51] VITALS: BP 157/93; PULSE 95; RESP 16; O2SAT 93
[2023-12-13 14:14] LABS: Basophils % 0.3 %; Hematocrit 30.1 % (36-47); Lymphocytes # 0.1 10^3/uL (0.8-4.8); Lymphocytes % 2.6 %; Mean Corpuscular HGB Conc 35.2 g/dL (30-55); Mean Corpuscular Hemoglobin 29.2 pg (27-33); Mean Corpuscular Volume 82.9 fl (85-98); Mean Platelet Volume 12.9 fL (7.4-10.4); Monocytes # 0.3 10^3/uL (0.2-0.9); Monocytes % 6.7 %; Neutrophils # 3.43 10^3/uL (1.8-7.7); Neutrophils % 88.9 %; Nucleated Red Blood Cells % 0 %; Platelet Count 89 10^3/cmm (157-399); Red Blood Count 3.63 10^6/uL (3.85-5.65); Red Cell Distribution Width 12.5 % (12.1-15.1); White Blood Count 3.86 10^3/uL (3.29-11.43)
[2023-12-13 14:35] LABS: Lactic Sepsis W/Reflex 2.7 mmol/L (0.5-2.2)
[2023-12-13 14:38] LABS: Alanine Aminotransferase 26 U/L (0-33); Albumin Level 3.3 g/dL (3.5-5.2); Alkaline Phosphatase 126 U/L (35-105); Anion Gap 19.1 (5-19); Aspartate Amino Transferase 41 U/L (0-32); Blood Urea Nitrogen 13 mg/dL (8-23); C Reactive Protein 60.4 mg/L (0.0-4.9); Calcium 8.2 mg/dL (8.5-10.5); Carbon Dioxide 23 mmol/L (22-29); Chloride 91 mmol/L (98-107); Globulin 3.1 g/dL (1.3-4.6); Glomerular Filtration Rate 61.9 mL/min (90-130); Glucose 217 mg/dL (65-115); Osmolality Calculated 277 mOsm/kg (285-295); Potassium 3.1 mmol/L (3.5-5.1); Sodium 130 mmol/L (136-145); Total Bilirubin 1.2 mg/dL (0.15-1.2); Total Protein 6.4 g/dL (6.6-8.7)
[2023-12-13 14:48] VITALS: BP 161/72; RESP 16; O2SAT 93
[2023-12-13 15:05] VITALS: BP 160/76; PULSE 102; RESP 18; O2SAT 90
[2023-12-13 15:57] LABS: Reflex Lactate Order REFLEX LACTIC ORDERD
== END 2023-12-13 15:08 | disposition home or self-care (01) ==
PROVIDERS: Emergency Provider Emergency Medicine; PCP Family Medicine
DX: N39.0 Urinary tract infection, site not specified (principal); E86.0 Dehydration; R65.10 Systemic inflammatory response syndrome (SIRS) of non-infectious origin without acute organ dysfunction; Z79.82 Long term (current) use of aspirin; Z79.84 Long term (current) use of oral hypoglycemic drugs; E11.9 Type 2 diabetes mellitus without complications; I10 Essential (primary) hypertension
CPT/HCPCS: 36415; 36416; 80053; 81001; 82962; 83605; 85025; 86140; 87040; 87086; 96365; 99284; J0696; J7030

== ENCOUNTER 2023-12-16 16:57 | Emergency (ER) | payer MEDICARE, OTHER, SELFPAY ==
[2023-12-16] VITALS (9 sets, daily range): BP systolic 121–139; BP diastolic 71–74; PULSE 70–77; RESP 16–18; TEMP 36.9; O2SAT 91–96; BMI 27.8
--- NOTE | 2023-12-16 18:00 | ED_ITS ---
Documented by User: DIOGO Palmer 12/16/23 22:10 HPI - Extremity Problem 2 General: Chief complaint: Extremity Problem,Nontraumatic Stated complaint: left arm pain Time Seen by Provider: 12/16/23 17:41 Source: patient and family Mode of arrival: ambulatory Limitations: no limitations History of Present Illness: Patient presents emergency department today accompanied by family for evaluation and treatment of bruising and fatigue. Patient also reports feeling off today but is unable to articulate exactly how she is feeling. Incidentally, patient was seen and evaluated about 2 weeks ago where she was diagnosed with urinary tract infection. There was also complaints of bright red blood per rectum however was found to have hemorrhoids. Patient had a CT scan of her abdomen which revealed a chronic hepatic vein occlusion for which patient takes aspirin daily. Patient was started on Macrobid for UA findings. She had a negative urine culture. Patient then saw her primary care doctor for follow-up. At that time she was still complaining of fatigue but had no more urinary symptoms, no rectal bleeding, but continued complaint of chronic back pains. Her chart indicates she has had imaging in the past without acute concerns but, primary care has given the process of getting her an MRI. Patient was then seen again here in the emergency department just a few days ago where she was diagnosed with dehydration and urinary symptoms. Family was concerned that there was some altered mental status however, patient had no neurological deficit appreciated in the ER. Patient was started on Omnicef. Patient is still taking the Omnicef. She notes no return of rectal bleeding and has no urinary symptoms to complain of. Patient comes in today as she has a large, dark purple bruise to the left upper arm of unknown origin. She states she did not receive any IVs in this area and denies any known injury. She states it was a family member who noticed it today. Family thinks the patient had some speech difficulty around 11:00 this morning but says she has not had any other symptoms since that time. Patient states she just feels off . She has not had any syncope. She is not complaining of shortness of breath or chest pains. She denies bleeding per rectum or dysuria. She denies abdominal pains. She denies pain in her left arm and denies any decreased mobility distally in the left upper extremity Review of Systems 2 General: Reports: 10 or more systems reviewed and unremarkable except in HPI and below PFSH ED 2 PFSH: Medical History Depression Osteoarthritis Type 2 diabetes mellitus Hypertension Diabetes GERD (gastroesophageal reflux disease) Surgical History History of esophagogastroduodenoscopy (EGD) History of bilateral tubal ligation (~1985) History of hysterectomy (~2005) History of cholecystectomy History of appendectomy Family History Denies family history of Anesthesia complication Bleeding disorder Social History Smoking and tobacco/nicotine status: never used tobacco/nicotine Second hand smoke exposure: No Alcohol intake: never Substance/Drug Use: never Adopted: No Caregiver/support person: No Lives independently: Yes Household members: spouse Housing: House Marital status: Current occupational status: retired Current occupational exposures/hazards: No Sexually active: No Do you think of yourself as: Straight/Heterosexual Current gender identity: Female Minal/Religious: Spiritism Physical Exam 2 Const: COMMON NORMALS: no acute distress, patient oriented x3 and alert O THER: Patient is pleasant, social. Answers her own history. HENMT: COMMON NORMALS: normocephalic, atraumatic, hearing grossly normal bilaterally, Normal external nose present, moist oral mucous membranes and dentition normal HEAD & SCALP: normocephalic and atraumatic NOSE: Normal external nose present Eye: COMMON NORMALS: Equal, round and reactive pupils present, EOMs intact bilaterally and conjunctivae normal CONJUNCTIVA: Yes conjunctivae normal P UPIL: Yes Equal, round and reactive pupils present Neck/C-Spine: COMMON NORMALS: full ROM, no meningeal signs and no JVD Lymph: LYMPHATIC: no lymphadenopathy noted Resp: COMMON NORMALS: normal respiratory effort, No retractions and No use of accessory muscles Cardio: COMMON NORMALS: no JVD and regular rate RATE: regular rate GI: OTHER: Abdomen is soft. Nontender to palpation. Active bowel sounds throughout. : COMMON NORMALS: Yes no CVA tenderness BLADDER/KIDNEY EXAM: Yes no CVA tenderness Back/Pelvis: COMMON NORMALS: no CVA tenderness, thoracic and lumbar spine normal to inspection and thoraco-lumbar ROM normal OTHER: Patient is independently ambulatory and weightbearing here in the emergency department. Extremity: COMMON NORMALS: normal to inspection, full ROM and no pedal edema Neuro: COMMON NORMALS: patient oriented x3 SENSORIUM/ORIENTATION: Yes alert MENINGEAL SIGNS: Yes no meningeal signs CRANIAL NERVES: Yes CN normal except as noted SPEECH: speech normal Skin: COMMON NORMALS: no rashes or lesions noted and turgor normal GENERAL SKIN EXAM: no rashes or lesions noted and turgor normal Course 2 Vital Signs: Vital signs: Vital Signs Temperature 98.4 F 12/16/23 17:04 Pulse Rate 75 12/16/23 21:32 Respiratory Rate 18 12/16/23 21:32 Blood Pressure 139/74 12/16/23 21:32 Pulse Oximetry 92 12/16/23 21:32 Oxygen Delivery Me thod Room Air 12/16/23 21:00 MDM - Extremity (Nontraumatic) Medical Decision Making Patient presented to the emergency department today for concerns of large bruising to her left arm without known injury. Patient has been seen and evaluated in the emergency department and with her primary care doctor several times in the last few weeks. She does have a history of a chronic hepatic clot and is currently on aspirin therapy. Patient has had a diagnosis of UTI and dehydration over the last few weeks and is currently on antibiotics. Patient states she feels off but is unable to express any further descriptions of these symptoms. However, and her examination today revealed no signs of any neurological deficit. Patient is alert and oriented with clear speech and mobility. It was found that patient is still anemic but stable-hemoglobin is the same as it was checked last time. However, patient is hypokalemic. We replaced her potassium orally here in the emergency department and she was found to have a decrease in GFR so 500 cc bolus of fluid was provided for her. Discussed case with Dr. Lentz. He is concerned as the patient's overall electrolytes seem to be decreased. Patient's sodium is 138 which, while is the same as a couple of days ago, it is still relatively low for her history. The patient's ultrasound shows no signs of underlying hematoma or concerns for active bleeding. Given that the patient scan is negative, the patient has complaints of feeling off and there is concerns for injury to the left upper arm from injury not recalled by the patient, he would recommend evaluation of the patient's head and even neck for concerns of fall. He also encouraged replacing sodium on this patient while we have her here in the emergency department. I did discuss all of this with the patient including replacing sodium and getting imaging of the patient's head. She is in agreement. While checking on the patient asked if she was feeling better. She states overall she is feeling better but is now complaining of headache. With this symptom I did discuss with her my recommendation for imaging of her head. She wishes to proceed. CT scan shows no acute concerns of any intracranial involvement for patient's symptoms today. No signs of any intracranial injury or neck injury from a potential fall. Patient is given dietary information for potassium and salt intake. She does have a history of hypertension but takes blood pressure medications and reports that the pressure is well-controlled. I request that she call her primary care doctor for [facility] in the morning to make follow-up appointment in the next 48 hours to have a recheck of her lab work to recheck her electrolyte levels, GFR, and hemoglobin levels. Patient states that with treatment here in the emergency department she does feel improved. She states she is ready to go home. Return precautions were given. Patient has been verbalized understanding and agreement to treatment plan. Differential Diagnosis Unlikely herpes zoster, cellulitis, superficial thrombophlebitis or deep venous thrombosis of upper extremity Lab Data 12/16/23 18:09 12/16/23 18:09 Radiology Impressions Soft Tissue Ultrasound 12/16/23 18:17 IMPRESSION: 1. No evidence of fluid collection or hematoma in the region of concern. If there is ongoing clinical concern, consider correlation with CT or MRI. Cervical Spine CT 12/16/23 20:11 IMPRESSION: 1. No evidence of fracture or subluxation of the cervical spine. Head CT 12/16/23 20:11 IMPRESSION: 1. No acute intracranial abnormality. Laboratory Results WBC 3.73 10^3/uL (3.29-11.43) 12/16/23 18:09 RBC 3.66 10^6/uL (3.85-5.65) L 12/16/23 18:09 Hgb 10.60 g/dL (11.27-16.99) L 12/16/23 18:09 Hct 30.2 % (36-47) L 12/16/23 18:09 MCV 82.5 fl (85-98) L 12/16/23 18:09 MCH 29.0 pg (27-33) 12/16/23 18:09 MCHC 35.1 g/dL (30-55) 12/16/23 18:09 RDW 12.6 % (12.1-15.1) 12/16/23 18:09 Plt Count 115 10^3/cmm (157-399) L 12/16/23 18:09 MPV 11.5 fL (7.4-10.4) H 12/16/23 18:09 Neut % (Auto) 68.2 % 12/16/23 18:09 Lymph % (Auto) 18.5 % 12/16/23 18:09 [place] % (Auto) 8.0 % 12/16/23 18:09 Eos % (Auto) 4.0 % 12/16/23 18:09 Baso % (Auto) 0.8 % 12/16/23 18:09 Neut # (Auto) 2.54 10^3/uL (1.8-7.7) 12/16/23 18:09 Lymph # (Auto) 0.7 10^3/uL (0.8-4.8) L 12/16/23 18:09 [place] # (Auto) 0.3 10^3/uL (0.2-0.9) 12/16/23 18:09 Eos # (Auto) 0.2 10^3/uL (0.0-0.8) 12/16/23 18:09 Baso # (Auto) 0.0 10^3/uL (0.0-0.1) 12/16/23 18:09 Nucleated RBC % (auto) 0 % 12/16/23 18:09 Nucleated RBCs # 0.0 /100WBC 12/16/23 18:09 PT 13.40 SECONDS (12.1-14.9) 12/16/23 18:09 INR 0.99 (0.8-1.2) 12/16/23 18:09 APTT 30.6 SECONDS (23.9-36.7) 12/16/23 18:09 Sodium 130 mmol/L (136-145) L 12/16/23 18:09 Potassium 2.5 mmol/L (3.5-5.1) L* 12/16/23 18:09 Chloride 90 mmol/L (98-107) L 12/16/23 18:09 Carbon Dioxide 26 mmol/L (22-29) 12/16/23 18:09 Anion Gap 16.5 (5-19) 12/16/23 18:09 BUN 9 mg/dL (8-23) 12/16/23 18:09 Creatinine 0.9 mg/dL (0.5-0.9) 12/16/23 18:09 GFR Calculation 61.9 mL/min (90-130) L 12/16/23 18:09 Glucose 170 mg/dL (65-115) H 12/16/23 18:09 Calculated Osmolality 273 mOsm/kg (285-295) L 12/16/23 18:09 Calcium 8.0 mg/dL (8.5-10.5) L 12/16/23 18:09 Total Bilirubin 0.7 mg/dL (0.15-1.2) 12/16/23 18:09 AST 36 U/L (0-32) H 12/16/23 18:09 ALT 23 U/L (0-33) 12/16/23 18:09 Alkaline Phosphatase 154 U/L (35-105) H 12/16/23 18:09 Creatine Kinase 41 U/L (26-192) 12/16/23 18:09 Total Protein 6.3 g/dL (6.6-8.7) L 12/16/23 18:09 Albumin 3.4 g/dL (3.5-5.2) L 12/16/23 18:09 Globulin 2.9 g/dL (1.3-4.6) 12/16/23 18:09 Urine Color Yellow (Yellow) 12/16/23 18:45 Urine Appearance Clear (CLEAR) 12/16/23 18:45 Urine pH 5 (5-7) 12/16/23 18:45 Ur Specific [place] 1.010 (1.005-1.030) 12/16/23 18:45 Urine Protein 2+ (Negative) H 12/16/23 18:45 Urine Glucose (UA) Norm (Normal) 12/16/23 18:45 Urine Ketones Negative (Negative) 12/16/23 18:45 Urine Blood Trace (Negative) H 12/16/23 18:45 Urine Nitrate Negative (Negative) 12/16/23 18:45 Urine Bilirubin Neg (Negative) 12/16/23 18:45 Urine Urobilinogen Norm mg/dL (Negative) 12/16/23 18:45 Ur Leukocyte Esterase Negative (Negative) 12/16/23 18:45 Urine RBC 0-4 /hpf (0-2) H 12/16/23 18:45 Urine WBC 0-4 /hpf (0-5) H 12/16/23 18:45 Ur Squamous Epith Cells 0-4 /hpf (0-5) H 12/16/23 18:45 Amorphous Sediment Not Reportable 12/16/23 18:45 Urine Bacteria Trace /hpf (NONE) 12/16/23 18:45 Hyaline Casts 0-4 /lpf H 12/16/23 18:45 Fine Granular Casts Rare /lpf 12/16/23 18:45 All radiology interpretation(s) finalized by discharge Discharge Plan Discharge Patient Disposition: Home Clinical Impression: Arm bruise, Acute hypokalemia, Acute hyponatremia Condition: Stable Prescriptions: No Action aspirin 81 mg tablet,delayed release (DR/EC) 81 mg PO QAM Hold Instructions: Resume on 01/28/20. (DME) DIABETIC SHOES See Rx Instructions .ROUTE .MEDSUPPLY Qty: 1 0RF Rx Instructions: with custom inserts aripiprazole 30 mg tablet 30 mg PO DAILY Qty: 30 11RF Januvia 50 mg tablet 50 mg PO DAILY Qty: 30 11RF acetaminophen [Tylenol Extra Strength] 500 mg Tablet 1,000 mg PO PRN diphenhydramine HCl [Allergy Relief(diphenhydramin)] 25 mg Tablet 25 mg PO QAM nitrofurantoin monohyd/m-cryst 100 mg capsule 100 mg PO Q12H Rx Instructions: FOR 7 DAYS cyclobenzaprine 10 mg tablet 10 mg PO Q8H PRN (Reason: Muscle Spasm) carvedilol 12.5 mg tablet 12.5 mg PO BID amlodipine 10 mg tablet 10 mg PO DAILY esomeprazole magnesium 40 mg capsule,delayed release(DR/EC) 40 mg PO BID glimepiride 4 mg tablet 4 mg PO BID hydrochlorothiazide 25 mg tablet 25 mg PO DAILY ondansetron 8 mg tablet,disintegrating 8 mg PO .q6 PRN (Reason: nausea and vomiting) Qty: 14 0RF cefdinir 300 mg capsule 300 mg PO BID 10 Days Qty: 20 0RF Discharge Orders: Discharge ED (Routine); Ordered 12/16/23 Ordered By: Charisse Fox Referrals: Sunny Tian MD [Primary Care Provider] - Discharge Diet: As Directed Discharge Activity: Increase activity as tolerated Patient Instructions: Hyponatremia (ED), Hypokalemia (ED), Hematoma (ED) Activity Restrictions/Additional Instructions: Urinalysis today shows near resolution of any findings of infection in your urine. Complete the antibiotics as prescribed which have been given to you. Your lab work shows stable hemoglobin levels in regards to your anemia. Unfortunately, you had a noticeable decrease in both your potassium and your salt levels. We replaced these while you are here in the emergency department. We encourage you to adhere to the recommended diet changes which have been given to you including foods which contain higher levels of salt and potassium over the next several days. Please follow-up with your primary care doctor in the next couple days for recheck of your labs to make sure these electrolyte levels are back within normal limits. You may drink beverages such as propel and Gatorade to help with your electrolyte replacement however, please be aware that these are often high in sugar. There are Gatorade and propel that are sugar- free which may be easier to control your blood sugar levels. Ultrasound of your arm shows no signs of any deep hematoma concerning for any active or continued bleeding. Coding Level of Care Code ED Business Management Associate for Chg Fwd Documented by User: Chay Lentz MD 12/18/23 18:48 HPI - Extremity Problem 2 General: Chief complaint: Extremity Problem,Nontraumatic Stated complaint: left arm pain Time Seen by Provider: 12/16/23 17:41 PFSH ED 2 PFSH: Medical History Depression Osteoarthritis Type 2 diabetes mellitus Hypertension Diabetes GERD (gastroesophageal reflux disease) Surgical History History of esophagogastroduodenoscopy (EGD) History of bilateral tubal ligation (~1985) History of hysterectomy (~2005) History of cholecystectomy History of appendectomy Family History Denies family history of Anesthesia complication Bleeding disorder Social History Smoking and tobacco/nicotine status: never used tobacco/nicotine Second hand smoke exposure: No Alcohol intake: never Substance/Drug Use: never Adopted: No Caregiver/support person: No Lives independently: Yes Household members: spouse Housing: House Marital status: Current occupational status: retired Current occupational exposures/hazards: No Sexually active: No Do you think of yourself as: Straight/Heterosexual Current gender identity: Female Minal/Religious: Spiritism Course 2 Vital Signs: Vital signs: Vital Signs Temperature 98.4 F 12/16/23 17:04 Pulse Rate 75 12/16/23 21:32 Respiratory Rate 18 12/16/23 21:32 Blood Pressure 139/74 12/16/23 21:32 Pulse Oximetry 92 12/16/23 21:32 Oxygen Delivery Me thod Room Air 12/16/23 21:00 MDM - Extremity (Nontraumatic) Medical Decision Making Patient presented to the emergency department today for concerns of large bruising to her left arm without known injury. Patient has been seen and evaluated in the emergency department and with her primary care doctor several times in the last few weeks. She does have a history of a chronic hepatic clot and is currently on aspirin therapy. Patient has had a diagnosis of UTI and dehydration over the last few weeks and is currently on antibiotics. Patient states she feels off but is unable to express any further descriptions of these symptoms. However, and her examination today revealed no signs of any neurological deficit. Patient is alert and oriented with clear speech and mobility. It was found that patient is still anemic but stable-hemoglobin is the same as it was checked last time. However, patient is hypokalemic. We replaced her potassium orally here in the emergency department and she was found to have a decrease in GFR so 500 cc bolus of fluid was provided for her. Discussed case with Dr. Lentz. He is concerned as the patient's overall electrolytes seem to be decreased. Patient's sodium is 130 which, while is the same as a couple of days ago, it is still relatively low for her history. The patient's ultrasound shows no signs of underlying hematoma or concerns for active bleeding. Given that the patient scan is negative, the patient has complaints of feeling off and there is concerns for injury to the left upper arm from injury not recalled by the patient, he would recommend evaluation of the patient's head and even neck for concerns of fall. He also encouraged replacing sodium on this patient while we have her here in the emergency department. I did discuss all of this with the patient including replacing sodium and getting imaging of the patient's head. She is in agreement. While checking on the patient asked if she was feeling better. She states overall she is feeling better but is now complaining of headache. With this symptom I did discuss with her my recommendation for imaging of her head. She wishes to proceed. CT scan shows no acute concerns of any intracranial involvement for patient's symptoms today. No signs of any intracranial injury or neck injury from a potential fall. Patient is given dietary information for potassium and salt intake. She does have a history of hypertension but takes blood pressure medications and reports that the pressure is well-controlled. I request that she call her primary care doctor for [facility] in the morning to make follow-up appointment in the next 48 hours to have a recheck of her lab work to recheck her electrolyte levels, GFR, and hemoglobin levels. Patient states that with treatment here in the emergency department she does feel improved. She states she is ready to go home. Return precautions were given. Patient has been verbalized understanding and agreement to treatment plan. Attending physician attestation I discussed the patient's history of present illness, physical exam findings, pertinent labs, pertinent radiographic exams and plan of care with the midlevel provider. I did personally have a [id number] evaluation and discussion with the patient regarding the plan of care. Medical Records I reviewed the patient's medical records. Lab Data I reviewed the patient's lab results. 12/16/23 18:09 12/16/23 18:09 Radiology Impressions Soft Tissue Ultrasound 12/16/23 18:17 IMPRESSION: 1. No evidence of fluid collection or hematoma in the region of concern. If there is ongoing clinical concern, consider correlation with CT or MRI. Cervical Spine CT 12/16/23 20:11 IMPRESSION: 1. No evidence of fracture or subluxation of the cervical spine. Head CT 12/16/23 20:11 IMPRESSION: 1. No acute intracranial abnormality. Laboratory Results WBC 3.73 10^3/uL (3.29-11.43) 12/16/23 18:09 RBC 3.66 10^6/uL (3.85-5.65) L 12/16/23 18:09 Hgb 10.60 g/dL (11.27-16.99) L 12/16/23 18:09 Hct 30.2 % (36-47) L 12/16/23 18:09 MCV 82.5 fl (85-98) L 12/16/23 18:09 MCH 29.0 pg (27-33) 12/16/23 18:09 MCHC 35.1 g/dL (30-55) 12/16/23 18:09 RDW 12.6 % (12.1-15.1) 12/16/23 18:09 Plt Count 115 10^3/cmm (157-399) L 12/16/23 18:09 MPV 11.5 fL (7.4-10.4) H 12/16/23 18:09 Neut % (Auto) 68.2 % 12/16/23 18:09 Lymph % (Auto) 18.5 % 12/16/23 18:09 [place] % (Auto) 8.0 % 12/16/23 18:09 Eos % (Auto) 4.0 % 12/16/23 18:09 Baso % (Auto) 0.8 % 12/16/23 18:09 Neut # (Auto) 2.54 10^3/uL (1.8-7.7) 12/16/23 18:09 Lymph # (Auto) 0.7 10^3/uL (0.8-4.8) L 12/16/23 18:09 [place] # (Auto) 0.3 10^3/uL (0.2-0.9) 12/16/23 18:09 Eos # (Auto) 0.2 10^3/uL (0.0-0.8) 12/16/23 18:09 Baso # (Auto) 0.0 10^3/uL (0.0-0.1) 12/16/23 18:09 Nucleated RBC % (auto) 0 % 12/16/23 18:09 Nucleated RBCs # 0.0 /100WBC 12/16/23 18:09 PT 13.40 SECONDS (12.1-14.9) 12/16/23 18:09 INR 0.99 (0.8-1.2) 12/16/23 18:09 APTT 30.6 SECONDS (23.9-36.7) 12/16/23 18:09 Sodium 130 mmol/L (136-145) L 12/16/23 18:09 Potassium 2.5 mmol/L (3.5-5.1) L* 12/16/23 18:09 Chloride 90 mmol/L (98-107) L 12/16/23 18:09 Carbon Dioxide 26 mmol/L (22-29) 12/16/23 18:09 Anion Gap 16.5 (5-19) 12/16/23 18:09 BUN 9 mg/dL (8-23) 12/16/23 18:09 Creatinine 0.9 mg/dL (0.5-0.9) 12/16/23 18:09 GFR Calculation 61.9 mL/min (90-130) L 12/16/23 18:09 Glucose 170 mg/dL (65-115) H 12/16/23 18:09 Calculated Osmolality 273 mOsm/kg (285-295) L 12/16/23 18:09 Calcium 8.0 mg/dL (8.5-10.5) L 12/16/23 18:09 Total Bilirubin 0.7 mg/dL (0.15-1.2) 12/16/23 18:09 AST 36 U/L (0-32) H 12/16/23 18:09 ALT 23 U/L (0-33) 12/16/23 18:09 Alkaline Phosphatase 154 U/L (35-105) H 12/16/23 18:09 Creatine Kinase 41 U/L (26-192) 12/16/23 18:09 Total Protein 6.3 g/dL (6.6-8.7) L 12/16/23 18:09 Albumin 3.4 g/dL (3.5-5.2) L 12/16/23 18:09 Globulin 2.9 g/dL (1.3-4.6) 12/16/23 18:09 Urine Color Yellow (Yellow) 12/16/23 18:45 Urine Appearance Clear (CLEAR) 12/16/23 18:45 Urine pH 5 (5-7) 12/16/23 18:45 Ur Specific [place] 1.010 (1.005-1.030) 12/16/23 18:45 Urine Protein 2+ (Negative) H 12/16/23 18:45 Urine Glucose (UA) Norm (Normal) 12/16/23 18:45 Urine Ketones Negative (Negative) 12/16/23 18:45 Urine Blood Trace (Negative) H 12/16/23 18:45 Urine Nitrate Negative (Negative) 12/16/23 18:45 Urine Bilirubin Neg (Negative) 12/16/23 18:45 Urine Urobilinogen Norm mg/dL (Negative) 12/16/23 18:45 Ur Leukocyte Esterase Negative (Negative) 12/16/23 18:45 Urine RBC 0-4 /hpf (0-2) H 12/16/23 18:45 Urine WBC 0-4 /hpf (0-5) H 12/16/23 18:45 Ur Squamous Epith Cells 0-4 /hpf (0-5) H 12/16/23 18:45 Amorphous Sediment Not Reportable 12/16/23 18:45 Urine Bacteria Trace /hpf (NONE) 12/16/23 18:45 Hyaline Casts 0-4 /lpf H 12/16/23 18:45 Fine Granular Casts Rare /lpf 12/16/23 18:45 Discharge Plan Discharge Patient Disposition: Home Clinical Impression: Arm bruise, Acute hypokalemia, Acute hyponatremia Condition: Stable Prescriptions: No Action aspirin 81 mg tablet,delayed release (DR/EC) 81 mg PO QAM Hold Instructions: Resume on 01/28/20. (DME) DIABETIC SHOES See Rx Instructions .ROUTE .MEDSUPPLY Qty: 1 0RF Rx Instructions: with custom inserts aripiprazole 30 mg tablet 30 mg PO DAILY Qty: 30 11RF Januvia 50 mg tablet 50 mg PO DAILY Qty: 30 11RF acetaminophen [Tylenol Extra Strength] 500 mg Tablet 1,000 mg PO PRN diphenhydramine HCl [Allergy Relief(diphenhydramin)] 25 mg Tablet 25 mg PO QAM nitrofurantoin monohyd/m-cryst 100 mg capsule 100 mg PO Q12H Rx Instructions: FOR 7 DAYS cyclobenzaprine 10 mg tablet 10 mg PO Q8H PRN (Reason: Muscle Spasm) carvedilol 12.5 mg tablet 12.5 mg PO BID amlodipine 10 mg tablet 10 mg PO DAILY esomeprazole magnesium 40 mg capsule,delayed release(DR/EC) 40 mg PO BID glimepiride 4 mg tablet 4 mg PO BID hydrochlorothiazide 25 mg tablet 25 mg PO DAILY ondansetron 8 mg tablet,disintegrating 8 mg PO .q6 PRN (Reason: nausea and vomiting) Qty: 14 0RF cefdinir 300 mg capsule 300 mg PO BID 10 Days Qty: 20 0RF Discharge Orders: Discharge ED (Routine); Ordered 12/16/23 Ordered By: Charisse Fox Referrals: Sunny Tian MD [Primary Care Provider] - Discharge Diet: As Directed Discharge Activity: Increase activity as tolerated Patient Instructions: Hyponatremia (ED), Hypokalemia (ED), Hematoma (ED) Activity Restrictions/Additional Instructions: Urinalysis today shows near resolution of any findings of infection in your urine. Complete the antibiotics as prescribed which have been given to you. Your lab work shows stable hemoglobin levels in regards to your anemia. Unfortunately, you had a noticeable decrease in both your potassium and your salt levels. We replaced these while you are here in the emergency department. We encourage you to adhere to the recommended diet changes which have been given to you including foods which contain higher levels of salt and potassium over the next several days. Please follow-up with your primary care doctor in the next couple days for recheck of your labs to make sure these electrolyte levels are back within normal limits. You may drink beverages such as propel and Gatorade to help with your electrolyte replacement however, please be aware that these are often high in sugar. There are Gatorade and propel that are sugar- free which may be easier to control your blood sugar levels. Ultrasound of your arm shows no signs of any deep hematoma concerning for any active or continued bleeding. Coding Level of Care Code ED [employer] Associate for Shahram Woodson
--- NOTE | 2023-12-16 18:17 | USR_ITS ---
PROCEDURE INFORMATION: Exam: US Left Non-Vascular Joint or Other Extremity Structure Exam date and time: 12/16/2023 6:51 PM Age: 68 years old Clinical indication: Other: Bruising posterior left upper arm today; Additional info: Hematoma, large hematoma left upper arm, no know cause, HX of clots, TECHNIQUE: Imaging protocol: Left US joint or other nonvascular extremity structure or structures. Real-time ultrasound with image documentation. Limited study. Exam focused on the upper extremity in the region of clinical interest. COMPARISON: CT chest abdpel w/*[id number] 08/25/2022 9:07 PM FINDINGS: Soft tissues: No evidence of fluid collection or hematoma in the region of concern. US/US soft tissue/extremity [id number] IMPRESSION: 1. No evidence of fluid collection or hematoma in the region of concern. If there is ongoing clinical concern, consider correlation with CT or MRI.
[2023-12-16 18:24] LABS: Basophils % 0.8 %; Eosinophils # 0.2 10^3/uL (0.0-0.8); Hematocrit 30.2 % (36-47); Lymphocytes # 0.7 10^3/uL (0.8-4.8); Lymphocytes % 18.5 %; Mean Corpuscular HGB Conc 35.1 g/dL (30-55); Mean Corpuscular Volume 82.5 fl (85-98); Mean Platelet Volume 11.5 fL (7.4-10.4); Monocytes # 0.3 10^3/uL (0.2-0.9); Neutrophils # 2.54 10^3/uL (1.8-7.7); Neutrophils % 68.2 %; Nucleated Red Blood Cells % 0 %; Platelet Count 115 10^3/cmm (157-399); Red Blood Count 3.66 10^6/uL (3.85-5.65); Red Cell Distribution Width 12.6 % (12.1-15.1); White Blood Count 3.73 10^3/uL (3.29-11.43)
[2023-12-16 18:31] LABS: INR 0.99 (0.8-1.2)
[2023-12-16 18:33] LABS: Partial Thromboplastin Time 30.6 SECONDS (23.9-36.7)
[2023-12-16 18:37] LABS: Alanine Aminotransferase 23 U/L (0-33); Albumin Level 3.4 g/dL (3.5-5.2); Alkaline Phosphatase 154 U/L (35-105); Anion Gap 16.5 (5-19); Aspartate Amino Transferase 36 U/L (0-32); Blood Urea Nitrogen 9 mg/dL (8-23); Carbon Dioxide 26 mmol/L (22-29); Chloride 90 mmol/L (98-107); Creatinine Clr Calc Pharmacy 52.9241; Globulin 2.9 g/dL (1.3-4.6); Glomerular Filtration Rate 61.9 mL/min (90-130); Glucose 170 mg/dL (65-115); Osmolality Calculated 273 mOsm/kg (285-295); Sodium 130 mmol/L (136-145); Total Bilirubin 0.7 mg/dL (0.15-1.2); Total Protein 6.3 g/dL (6.6-8.7)
--- NOTE | 2023-12-16 18:39 | PC.NURSE ---
Report to Tomasa ANDREWS
[2023-12-16 18:55] LABS: Potassium 2.5 mmol/L (3.5-5.1)
[2023-12-16] MEDS: potassium chloride ER 20 mEq Tablet 40 MEQ PO (19:06)
[2023-12-16] MEDS: sodium chloride 0.9% 500 ML IV (19:12)
[2023-12-16 19:22] LABS: Add Urine Microscopic? YES; Bacteria Urine TRACE /hpf; Bilirubin Urine Neg (Negative); Blood Urine Trace (Negative); Fine Granular Casts Urine RARE /lpf; Glucose Urine UA Norm (Normal); Hyaline Casts Urine 0-4 /lpf; Ketones Urine Negative (Negative); Leukocyte Esterase Urine Negative (Negative); Nitrate Urine Negative (Negative); Protein Urine 2+ (Negative); RBC Urine 0-4 /hpf (0-2); Squamous Epithelial Cell Urine 0-4 /hpf (0-5); Urine Appearance Clear (CLEAR); Urine Color Yellow (Yellow); Urobilinogen Urine Norm (Negative); WBC Urine 0-4 /hpf (0-5); pH Urine 5 (5-7)
[2023-12-16 19:23] LABS: Add Urine Culture? No
[2023-12-16 19:28] LABS: Creatine Phosphokinase 41 U/L (26-192)
--- NOTE | 2023-12-16 19:37 | ECG_ITS ---
[facility] Test Date: 2023-12-16 Pat Name: Kristin Rosario Department: Room: Gender: Female Plant W[employer]: : 1955 Requested By: Charisse Hamilton Order Number: [id number] Yohana MD: Maurice Santana M.D. Measurements Intervals Tye Rate: 67 P: 26 DE: 163 QRS: 19 QRSD: 106 T: 10 QT: 441 QTc: 466 Interpretive Statements SINUS RHYTHM POSSIBLE LEFT ATRIAL ENLARGEMENT [-0.1mV P-WAVE IN V1/V2] NONSPECIFIC ST & T-WAVE ABNORMALITY Compared to ECG 04/07/2017 19:15:51 T-wave abnormality now present Electronically Signed On 12-16-2023 21:00:40 CDT by Maurice Santana M.D. [id number]
--- NOTE | 2023-12-16 20:11 | CTR_ITS ---
PROCEDURE INFORMATION: Exam: CT Head Without Contrast Exam date and time: 12/16/2023 8:23 PM Age: 68 years old Clinical indication: Injury or trauma; Fall; Other: Feels off ; Patient HX: History--patient states she feels off. family reports she May have had some speech difficulty earlier today. ; Additional info: Possible fall, hematoma to arm of unknown origin, feels off with TECHNIQUE: Imaging protocol: Computed tomography of the head without contrast. Radiation optimization: All CT scans at this facility use at least one of these dose optimization techniques: automated exposure control; mA and/or kV adjustment per patient size (includes targeted exams where dose is matched to clinical indication); or iterative reconstruction. COMPARISON: CT head wo con* [id number] 08/25/2022 8:59 PM RADIATION DOSE METRICS: Total DLP (mGy-cm): 853.2 FINDINGS: Brain: No evidence of intra-axial or extra-axial hemorrhage. No mass effect or midline shift. Knight-white differentiation is maintained. Basilar cisterns are patent. Cerebral ventricles: No hydrocephalus. Paranasal sinuses: The visualized paranasal sinuses are well aerated. Mastoid air cells: The visualized mastoids and middle ears are clear. Bones/joints: The visualized calvarium and bony orbits are intact. Soft tissues: No gross soft tissue abnormality. CT/CT head wo con* [id number] IMPRESSION: 1. No acute intracranial abnormality.
--- NOTE | 2023-12-16 20:11 | CTR_ITS ---
PROCEDURE INFORMATION: Exam: CT Cervical Spine Without Contrast Exam date and time: 12/16/2023 8:23 PM Age: 68 years old Clinical indication: Injury or trauma; Fall; Other: Weakness; Patient HX: History--patient states she feels off. family reports she May have had some speech difficulty earlier today. ; Additional info: Possible fall, injuries of unknown cause, electrolyte abnormalities TECHNIQUE: Imaging protocol: Computed tomography of the cervical spine without contrast. Radiation optimization: All CT scans at this facility use at least one of these dose optimization techniques: automated exposure control; mA and/or kV adjustment per patient size (includes targeted exams where dose is matched to clinical indication); or iterative reconstruction. COMPARISON: CT cervical spin wo con* [id number] 08/25/2022 9:02 PM RADIATION DOSE METRICS: Total DLP (mGy-cm): 589.1 FINDINGS: Bones/joints: No evidence of acute fracture or subluxation of the cervical spine. The craniocervical junction including the atlantoaxial and atlantooccipital articulations are intact. C2-C3: No central or foraminal stenosis. C3-C4: Uncovertebral hypertrophy and facet arthrosis results in moderate right-sided foraminal stenosis. No central stenosis. C4-C5: Uncovertebral hypertrophy and facet arthrosis results in moderate right-sided foraminal stenosis and mild left-sided foraminal stenosis. No central stenosis. C5-C6: Uncovertebral hypertrophy results in mild left-sided foraminal stenosis. No central stenosis. C6-C7: Mild uncovertebral hypertrophy without central or foraminal stenosis. C7-T1: Mild uncovertebral hypertrophy without central or foraminal stenosis. Lungs: The visualized lung apices are clear. Soft tissues: No gross soft tissue abnormality. No significant prevertebral edema. No evidence of fluid collection or hematoma. CT/CT cervical spin wo con* [id number] IMPRESSION: 1. No evidence of fracture or subluxation of the cervical spine.
[2023-12-16] MEDS: sodium chloride 1 gm Tablet PO (20:37)
[2023-12-16] MEDS: ondansetron 2 mg/ML SDV 2 mL 4 MG IVP (20:38)
== END 2023-12-16 21:34 | disposition home or self-care (01) ==
PROVIDERS: Emergency Provider Physician Assistant; PCP Family Medicine
DX: S40.022A Contusion of left upper arm, initial encounter (principal); E87.6 Hypokalemia; E87.1 Hypo-osmolality and hyponatremia; Z79.82 Long term (current) use of aspirin; Z79.84 Long term (current) use of oral hypoglycemic drugs; E11.9 Type 2 diabetes mellitus without complications; I10 Essential (primary) hypertension; X58.XXXA Exposure to other specified factors, initial encounter
CPT/HCPCS: 70450; 72125; 76882; 80053; 81001; 82550; 85025; 85610; 85730; 93005; 96361; 96374; 99285; J2405; J7040

== ENCOUNTER → 2023-12-23 13:48 | Outpatient (BNVA) | payer MEDICARE, OTHER, SELFPAY | PROVIDERS: PCP Family Medicine; Visit Provider Family Medicine | DX: E87.6 Hypokalemia (principal) | CPT/HCPCS: 80053 ==

== ENCOUNTER → 2024-01-07 08:44 | Outpatient (BNVA) | payer MEDICARE, OTHER, SELFPAY | PROVIDERS: PCP Family Medicine; Visit Provider Family Medicine | DX: E87.1 Hypo-osmolality and hyponatremia (principal) | CPT/HCPCS: 80048 ==

== ENCOUNTER → 2024-06-03 14:13 | Outpatient (BNVA) | payer MEDICARE, SELFPAY | PROVIDERS: PCP Family Medicine; Visit Provider Family Medicine | DX: E11.9 Type 2 diabetes mellitus without complications (principal); E87.1 Hypo-osmolality and hyponatremia; F32.A Depression, unspecified; R07.9 Chest pain, unspecified | CPT/HCPCS: 80053; 80061; 83735; 85025; 86140 ==

== ENCOUNTER 2024-10-10 12:21 | Outpatient (CLI) | payer MEDICARE, SELFPAY ==
--- NOTE | 2024-10-10 13:37 | XRR_ITS ---
PROCEDURE INFORMATION: Exam: XR Right Hip Exam date and time: 10/10/2024 1:38 PM Age: 69 years old Clinical indication: Hip pain; Right hip; RT hip/posterior pelvic pain post fall yesterday TECHNIQUE: Imaging protocol: Radiologic exam of the right hip. Views: 1 view hip with pelvis when performed. COMPARISON: CT abdomen pelvis w con* [id number] 12/06/2023 1:04 AM FINDINGS: Bones/joints: There are mild degenerative changes of the hip joints. There are mild degenerative changes of the sacroiliac joints. Soft tissues: Unremarkable. Vasculature: There are vascular calcifications. XR/XR hip RT 2-3V wo/w pel* [id number] IMPRESSION: No acute fracture or dislocation.
== END 2024-10-10 12:22 | disposition home or self-care (01) ==
LOC: RAD 13:28
PROVIDERS: PCP Family Medicine; Visit Provider Emergency Medicine
DX: S79.911A Unspecified injury of right hip, initial encounter (principal); R93.7 Abnormal findings on diagnostic imaging of other parts of musculoskeletal system; R93.89 Abnormal findings on diagnostic imaging of other specified body structures
CPT/HCPCS: 73502

== ENCOUNTER 2024-10-26 15:15 | Outpatient (CLI) | payer MEDICARE, SELFPAY ==
--- NOTE | 2024-10-26 16:00 | CT_ITS ---
WS: [id number] CT RIGHT HIP, NONCONTRAST HISTORY: hip pain, RIGHT hip pain after fall. Technique: All CT scans at [facility] use at least one of these dose optimization techniques: automated exposure control; mA and/or kV adjustment per patient size (includes targeted exams where dose is matched to clinical indication); or iterative reconstruction. DLP: 417.55 mGy COMPARISON: Radiograph 10/10/2024, CT pelvis 12/06/2023 No acute RIGHT hip fracture or displacement. Mild narrowing of the hip joint. Greater trochanter hypertrophic osteophytes. Acetabulum is intact. There is a very tiny area of cortical prominence in the mid RIGHT inferior pubic rami which may be a healing fracture. No adjacent soft tissue edema. There is a small soft tissue contusion along the posterior RIGHT hip. Moderate scattered femoral artery calcifications. There is free fluid in the pelvis which is slightly more than physiologic and cannot be explained in this post menopausal female. There are a few small inguinal lymph nodes but these are not enlarged. CT/CT hip RT wo con* [id number] IMPRESSION: 1. No RIGHT hip fracture or dislocation. 2. Suspect very slight inferior RIGHT pubic rami cortical injury with healing. 3. 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 4. Free fluid in the pelvis which is not physiologic in this post menopausal p atient. This fluid is of uncertain etiology but needs to be investigated if the re is no clinical explanation. New since 12/06/2023. 5. Moderate femoral artery atherosclerosis.
--- NOTE | 2024-10-26 16:30 | CT_ITS ---
WS: [id number] CT PELVIS NONCONTRAST HISTORY: pelvic pain, pain after fall. TECHNIQUE: Contiguous imaging is performed of the pelvis without contrast. Coronal and sagittal reformats are reviewed. All CT scans at [facility] use at least one of these dose optimization techniques: automated exposure control; mA and/or kV adjustment per patient size (includes targeted exams where dose is matched to clinical indication); or iterative reconstruction. DLP: 417.55 mGy.cm COMPARISON: 12/06/2023 Nondisplaced RIGHT sacral fracture. Fracture does not extend into the neural foramen. Fracture does extend to the RIGHT SI joint. No widening of the SI joint. Bilateral moderate arthropathy involving each hip joint. The tiny possible buckle fracture again identified in the inferior RIGHT pubic rami. No widening of the SI joints. Lumbosacral junction is intact. Small to moderate amount of free fluid in the pelvis greatest to the RIGHT of midline of uncertain etiology. Fat-containing umbilical hernia. Prior hysterectomy. CT/CT bony pelvis [id number] IMPRESSION: 1. Nondisplaced RIGHT sacral fracture. Fracture extends into the SI joint but not a sacral foramina. 2. Free fluid in the pelvis of uncertain etiology. 3. Possible very small buckle fracture involving the inferior RIGHT pubic rami with healing. 4. Fat-containing umbilical hernia.
== END 2024-10-26 15:16 | disposition home or self-care (01) ==
PROVIDERS: PCP Family Medicine; Visit Provider Family Medicine
DX: M25.551 Pain in right hip (principal); R10.2 Pelvic and perineal pain; S32.10XA Unspecified fracture of sacrum, initial encounter for closed fracture; X58.XXXA Exposure to other specified factors, initial encounter; R93.89 Abnormal findings on diagnostic imaging of other specified body structures; K42.9 Umbilical hernia without obstruction or gangrene; M12.852 Other specific arthropathies, not elsewhere classified, left hip; M12.851 Other specific arthropathies, not elsewhere classified, right hip; Z90.710 Acquired absence of both cervix and uterus
CPT/HCPCS: 72192; 73700

== ENCOUNTER 2025-01-25 14:42 | Outpatient (CLI) | payer MEDICARE, SELFPAY ==
--- NOTE | 2025-01-25 15:00 | CT_ITS ---
WS: [id number] CT PELVIS NONCONTRAST HISTORY: right hip pain/ pelvic pain TECHNIQUE: Contiguous imaging is performed of the pelvis without contrast. Coronal and sagittal reformats are reviewed. All CT scans at [facility] use at least one of these dose optimization techniques: automated exposure control; mA and/or kV adjustment per patient size (includes targeted exams where dose is matched to clinical indication); or iterative reconstruction. DLP: 214.06 mGy.cm COMPARISON: 10/26/2024 Healing RIGHT sacral fracture now with bony sclerosis. No displacement of the fracture. Previously described suspected buckle fracture involving the inferior RIGHT pubic rami is identified today with more certainty. There is callus formation. There is an additional fracture that was occult on the prior study also involving the more anterior portion of the inferior RIGHT pubic rami with callus formation. Additional occult fractures now evident due to callus formation involving the superior pubic ramus on the RIGHT. No displacement but there is callus formation. No hip fracture is identified. No additional areas of callus formation identified. Small umbilical hernia contains fat only. Prior hysterectomy. CT/CT bony pelvis [id number] IMPRESSION: 1. Healing, known RIGHT sacral fracture. The extent of the RIGHT sacral fractu re is more pronounced than expected on the original exam due to increasing call us formation. No displacement. 2. There are 2 fractures in the inferior RIGHT pubic rami. Only 1 of these fra ctures was suspected on the prior study. These are now evident only because of increasing callus formation. 3. Additional occult fracture is now evident involving the superior RIGHT pubi c ramus due to callus formation. Nondisplaced.
== END 2025-01-25 14:43 | disposition home or self-care (01) ==
LOC: RAD 14:44
PROVIDERS: PCP Family Medicine; Visit Provider Family Medicine
DX: R10.2 Pelvic and perineal pain (principal); M25.551 Pain in right hip; S32.10XD Unspecified fracture of sacrum, subsequent encounter for fracture with routine healing; X58.XXXD Exposure to other specified factors, subsequent encounter; S32.501D Unspecified fracture of right pubis, subsequent encounter for fracture with routine healing; K42.9 Umbilical hernia without obstruction or gangrene; Z90.710 Acquired absence of both cervix and uterus
CPT/HCPCS: 72192

== ENCOUNTER → 2025-02-08 12:36 | Outpatient (BNVA) | payer MEDICARE, SELFPAY | PROVIDERS: PCP Family Medicine; Visit Provider Orthopaedic Surgery | DX: S32.10XD Unspecified fracture of sacrum, subsequent encounter for fracture with routine healing (principal); X58.XXXD Exposure to other specified factors, subsequent encounter | CPT/HCPCS: 99204 ==

== ENCOUNTER → 2025-03-08 12:48 | Outpatient (BNVA) | payer MEDICARE, SELFPAY | PROVIDERS: PCP Family Medicine; Visit Provider Orthopaedic Surgery | DX: S32.810D Multiple fractures of pelvis with stable disruption of pelvic ring, subsequent encounter for fracture with routine healing (principal); X58.XXXD Exposure to other specified factors, subsequent encounter | CPT/HCPCS: 72190; 99213 ==

== ENCOUNTER 2025-04-28 08:27 | Outpatient (CLI) | payer MEDICARE, SELFPAY ==
--- NOTE | 2025-04-28 08:34 | MM_ITS ---
WS: [email or web address] BILATERAL SCREENING DIGITAL TOMOSYNTHESIS MAMMOGRAM WITH CAD HISTORY: SCREENING COMPARISON: 11/12/2016, 12/12/2011, 11/21/2022 Bilateral CC and MLO views with tomosynthesis and synthetic mammography submitted. Computer aided detection analyzed. Breast composition: There are scattered areas of fibroglandular density. No suspicious masses, microcalcifications or architectural distortion. Dense arterial calcifications in each breast. Benign calcifications RIGHT breast. Long-term stability mass in the posterior RIGHT breast is probably a lymph node. MM/MM scr tomosynthesis [id number] IMPRESSION: BI-RADS: 2 - Benign. FOLLOW UP: 1 Year Follow-up
== END 2025-04-28 08:28 | disposition home or self-care (01) ==
LOC: RAD 08:28
PROVIDERS: PCP Family Medicine; Visit Provider Family Medicine
DX: Z12.31 Encounter for screening mammogram for malignant neoplasm of breast (principal); R92.323 Mammographic fibroglandular density, bilateral breasts; R92.1 Mammographic calcification found on diagnostic imaging of breast; N63.10 Unspecified lump in the right breast, unspecified quadrant
CPT/HCPCS: 77063; 77067

== ENCOUNTER → 2025-06-22 14:46 | Outpatient (BNVA) | payer MEDICARE, SELFPAY | PROVIDERS: PCP Family Medicine; Visit Provider Family Medicine | DX: F32.A Depression, unspecified (principal); I10 Essential (primary) hypertension; E11.9 Type 2 diabetes mellitus without complications; R07.9 Chest pain, unspecified | CPT/HCPCS: 80053; 80061; 83036; 84443; 85025 ==

== ENCOUNTER 2025-06-28 14:56 | Outpatient (CLI) | payer MEDICARE, SELFPAY ==
--- NOTE | 2025-06-28 15:30 | XR_ITS ---
WS: [email or web address] DEXA (DUAL ENERGY X-RAY ABSORPTIOMETRY) Bone mineral density was performed using a [employer] machine. HISTORY: screening COMPARISON: None available. Lumbar spine BMD (L1-L4): 1.020 g/cm2 T score: -1.3 Z score: 0.3 Total hip BMD: Left: 0.790 g/cm2. T score: -1.7 Z score: -0.2 Right: 0.735 g/cm2. T score: -2.2 Z score: -0.6 10 year probability of a major osteoporotic fracture is 39.6%. XR/XR DEXA axial skeleton* [id number] IMPRESSION: OSTEOPENIA based upon the WHO classification for females.
== END 2025-06-28 14:57 | disposition home or self-care (01) ==
LOC: RAD 14:57
PROVIDERS: PCP Family Medicine; Visit Provider Family Medicine
DX: Z13.820 Encounter for screening for osteoporosis (principal); Z00.00 Encounter for general adult medical examination without abnormal findings; M85.89 Other specified disorders of bone density and structure, multiple sites
CPT/HCPCS: 77080

== ENCOUNTER 2025-08-25 12:40 | Outpatient (RCR) | payer MEDICARE, SELFPAY | END 2025-09-08 23:59 | disposition home or self-care (01) | LOC: SPT 12:40 | PROVIDERS: PCP Family Medicine; Visit Provider Family Medicine | DX: M25.511 Pain in right shoulder (principal) | CPT/HCPCS: 97162 ==